=== PATIENT | female | born 1995 ===

== ENCOUNTER 2023-07-29 17:18 | Emergency (ER) | payer OTHER, SELFPAY ==
--- NOTE | ~2023-07-29 | XR_ITS ---
EXAMINATION: XR CHEST CLINICAL INFORMATION: Chest pain. COMPARISON: None available. TECHNIQUE: Frontal view of the chest was obtained. FINDINGS: No significant abnormality is noted involving the heart, lungs, mediastinum, bony thorax or soft tissues. XR/XR chest 1V IMPRESSION: Unremarkable examination.
--- NOTE | 2023-07-29 17:57 | ED.GENADULT ---
HPI - General Adult General Stated complaint: ear and throat pain Time Seen by Provider: 07/29/23 18:02 History of Present Illness HPI narrative: 28-year-old female with history of poor dental care prsents today for right lower molar pain that radiates to the right ear intermittently x 3 months. Reports she has not seen a dentist or PCP for a while. No fevers, changes in voice, drooling, or sore throat. No SOB. No dysphagia. Related Data Previous Rx's Medication Instructions Recorded amoxicillin 875 mg-potassium 1 tab PO BID 10 days #20 tabs 07/29/23 clavulanate 125 mg tablet naproxen 500 mg tablet 500 mg PO BID PRN pain 7 days #14 07/29/23 tabs Allergies Allergy/AdvReac Type Severity Reaction Status Date / Time No Known Allergies Allergy Verified 07/29/23 17:59 Review of Systems Review of Systems: Constitutional : No Fever, No Chills ENT/Mouth : No swallowing difficulty, no change in voice, positive dental pain, No jaw pain, No facial swelling Eyes: No Eye Pain, No Swelling Cardiovascular : No Chest Pain, No SOB Respiratory : No Cough, No Sputum Gastrointestinal : No Nausea, No Vomiting, No Diarrhea Genitourinary : No Dysuria Musculoskeletal : No Myalgias Skin : No rash Neuro : No Weakness, No Numbness, No Headache Physical Exam ED Vital Signs: VSS Appearance: Alert.? Oriented X3.? No acute distress.?Speaking in full sentences. Controlling secretions well. Head: Normocephalic, atraumatic, no step-offs or deformities Eyes: Pupils equal, round and reactive to light.? ENT: Pharynx normal.?Uvula midline, +Poor dentition throughout. +halitosis. +Fractured right lower back molar. No dental abscess.?External ears normal, TMs normal bilaterally and EAC's normal. No pain with manipulation of external ears bilaterally. No mastoid tenderness. Neck: Normal inspection.? Neck supple.? CVS: Normal heart rate and rhythm.? Pulses normal.? Respiratory: No respiratory distress.? Breath sounds normal.?No stridor. Skin: Skin warm and dry.? Normal skin color.? Normal skin turgor.? Extremities: No lower extremity edema.? No calf ttp. 5/5 strength to bilateral upper and lower extremities Neuro: Oriented X 3.? No motor deficit.? No sensory deficit. CN 2-12 intact Course Reevaluation(s) Reevaluation #1: Follow-up with dentist. Educated patient on diagnosis and treatment plan, answered all question, patient verbalizes understanding. At this time patient will be discharged home, advised to return with new or worsening symptoms. Educated on worrisome signs and symptoms and when to return. At this time I feel comfortable discharge home. Discharge Plan Discharge Patient Disposition: Still a Patient Additional Instructions: Prescriptions: New amoxicillin-pot clavulanate 875-125 mg tablet 1 tab PO BID 10 Days Qty: 20 0RF naproxen 500 mg tablet 500 mg PO BID PRN (Reason: pain) 7 Days Qty: 14 0RF Rx Instructions: Take with food Referrals: Physician,None [Primary Care Provider] - 1 day Stand Alone Forms: Work/School Release
[2023-07-29 18:34] VITALS: BP 160/95; PULSE 95; RESP 18; TEMP 36; O2SAT 99; BMI 43.0
--- NOTE | 2023-07-29 18:36 | ED.GENADULT ---
HPI - General Adult General Chief complaint: Upper Respiratory Symptoms Stated complaint: ear and throat pain Time Seen by Provider: 07/29/23 18:02 Source: patient Mode of arrival: ambulatory Limitations: no limitations History of Present Illness HPI narrative: Patient complaining of sore throat for last 2 weeks with bilateral earache right worse than left occasional dry cough low-grade fever and chills patient had strep test COVID flu RSV negative in the triage Related Data Previous Rx's Medication Instructions Recorded amoxicillin 875 mg-potassium 1 tab PO BID #20 tabs 07/30/23 clavulanate 125 mg tablet prednisone 20 mg tablet 40 mg (2 x 20 mg) PO DAILY #10 tabs 07/30/23 Allergies Allergy/AdvReac Type Severity Reaction Status Date / Time No Known Allergies Allergy Verified 07/29/23 18:33 Review of Systems Review of Systems: Yes all other systems are reviewed and are negative [facility] Social History Social History Smoked in Last 30 Days: No Use of substances other than those prescribed or required for medical reasons: No Advance Directives: No Advance Directives Information Provided: No Patient : No Physical Exam ED Vital Signs: Vital Signs - 24 hr 07/29/23 18:34 07/30/23 00:25 Temperature 96.8 F Pulse Rate 95 97 Respiratory Rate 18 18 Blood Pressure 160/95 H 145/80 H Pulse Oximetry 99 99 Oxygen Delivery Method Room Air BMI result Body Mass Index 43.0 Appearance: Alert. Oriented X3. No acute distress. ENT: Pharynx normal. Oral Mucosa moist postnasal drip+ inflamed nasal turbinate bilateral, tympanic membrane intake no erythema no effusion Neck: Normal inspection. Neck supple. CVS: Normal heart rate and rhythm. Pulses normal. Respiratory: No respiratory distress. Equal air entry bilateral, no wheezing/rales/rhonchi Extremities: No lower extremity edema. No calf tenderness Neuro: Oriented X 3. Course Course Course Narrative: This is an RME: Additional HPI, ROS, PE not included below will be deferred to primary provider. 28-year-old female presents with sore throat, b/l ear pain, cough with green sputum and intermittent blood-tinged sputum for the past 2 weeks. She reports mild chest discomfort when she coughs. She reports fevers last week that have since resolved. No shortness of breath. No n/v/d. No headaches or vision changes. Plan: Viral testing, strep testing, chest x-ray Medications Administered Discontinued Medications Generic Name Dose Route Start Last Admin Trade Name Natividad PRN Reason Stop Dose Admin Amoxicillin/Clavulanate Potassium 875 mg 07/29/23 23:57 07/30/23 00:12 Amoxicillin/Potassium Clav 875 Mg Tablet PO 07/29/23 23:58 875 mg ONCE ONE Administration Prednisone 60 mg 07/29/23 23:57 07/30/23 00:12 Prednisone 20 Mg Tablet PO 07/29/23 23:58 60 mg ONCE ONE Administration Medical Decision Making Medical Decision Making MDM Narrative: Patient likely with rhinosinusitis discharge patient on Augmentin and prednisone Lab Data [facility] Lab Attestation statement: I reviewed the patient's lab results. Labs: Lab Results 07/29/23 Range/Units 18:40 Influenza Type A (PCR) NEGATIVE (Negative) Influenza Type B (PCR) NEGATIVE (Negative) RSV RNA Qual (PCR) NEGATIVE (Negative) SARS-CoV-2 RNA (RT-PCR) NEGATIVE (Negative) S. pyogenes GrpA PROMISE Negative (Negative) Discharge Plan Discharge Clinical Impression: Acute rhinosinusitis Patient Disposition: Home, Self-Care Instructions: Rhinosinusitis (ED) Additional Instructions: Prescriptions: New prednisone 20 mg tablet 40 mg PO DAILY Qty: 10 0RF amoxicillin-pot clavulanate 875-125 mg tablet 1 tab PO BID Qty: 20 0RF Referrals: Physician,None [Primary Care Provider] - 1 day Stand Alone Forms: Work/School Release Interventions: ED Discharge Assessment Last Done: 07/30/23 00:28 Discharge Date/Time: 07/30/23 00:25
[2023-07-29 19:10] LABS: IDNOW Serial# 08D9AD1C; Strep A Nucleic Acid Negative (Negative)
[2023-07-29 19:32] LABS: Influenza A PCR NEGATIVE (Negative); Influenza B PCR NEGATIVE (Negative); Resp Syncy Virus RNA Qual PCR NEGATIVE (Negative); SARS COV2 PCR INHOUSE NEGATIVE (Negative)
[2023-07-30] MEDS: Amoxicillin/Potassium Clav 875 MG TABLET PO (00:12)
[2023-07-30] MEDS: predniSONE 20 MG TABLET 60 MG PO (00:12)
[2023-07-30 00:25] VITALS: BP 145/80; PULSE 97; RESP 18; O2SAT 99
== END 2023-07-30 00:25 | disposition home or self-care (01) ==
PROVIDERS: Physician Assistant; Emergency Provider Internal Medicine
DX: J01.90 Acute sinusitis, unspecified (principal); Z20.822 Contact with and (suspected) exposure to COVID-19; Z20.828 Contact with and (suspected) exposure to other viral communicable diseases; J02.9 Acute pharyngitis, unspecified; R05.9 Cough, unspecified
CPT/HCPCS: 0241U; 71045; 87651; 99283; 99284

== ENCOUNTER → 2024-05-18 09:44 | Outpatient (BNVA) | payer OTHER, SELFPAY | PROVIDERS: PCP Internal Medicine; Visit Provider Surgery ==

== ENCOUNTER 2024-06-07 08:00 | Outpatient (AMB) | payer OTHER, SELFPAY ==
[2024-06-07 11:47] VITALS: BMI 45.7
--- NOTE | 2024-06-07 11:47 | MHC.OFFVISWM ---
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: Yes Music Teacher Services: Music Teacher Present Information Interpreted: clinical only Allergies No Known Allergies Allergy (Verified 06/07/24 11:47) Medication List - Last Reconciled 06/07/24 by Andrea Laurent MD acetaminophen-caffeine 500-65 mg (Excedrin Tension Headache) 1 tab PO Q12H PRN HPI HPI 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*: Details: Start time: 11.40am, End time: 12.25pm ?I spent 40 minutes speaking with the patient on the phone plus an additional 5 minutes reviewing and updating records for a total of 45 minutes HPI Comments Details: Previous weight loss efforts: Exercise, [employer]bal[employer] Wakes up: 12pm, Sleeps: 3am Breakfast: skips Lunch: 1pm (sandwich, canned spaghetti, soup) Dinner: 6pm (rice and chicken) Snacks: 3pm (fruits or ice cream), after dinner (milk) Exercise: none Fluids: Coffee: none, tea: none, soda: Mountain Dew, juice: Cranberry juice, ETOH: none PFSH Medical History (Updated 06/07/24 @ 11:53 by Andrea Laurent MD) Anxiety Chronic headaches Morbid obesity Surgical History (Updated 05/18/24 @ 11:58 by Miladys Cummings CMA) Hx of cholecystectomy Family History (Updated 05/18/24 @ 10:06 by Miladys Cummings CMA) Paternal Grandmother Breast cancer Maternal Aunt Breast cancer Social History (Updated 05/18/24 @ 10:06 by Miladys Cummings CMA) Alcohol intake: never Patient Tobacco Use Status: Never used Tobacco Telehealth Telehealth Telehealth Platform: Telephone Location of provider rendering services: practice address Location of patient: address on file Patient Identification confirmed using: Name, : Yes Telehealth method: voice only Patient verbally consented to treatment: Yes Patient verbally consented to billing insurance company: Yes Patient informed of any privacy concerns related to visit: Yes Minutes spent on Phone/Video with Pt.: 45 Assessment & Plan Assessment & Plan (1) Morbid obesity: Code(s): E66.01 - Morbid (severe) obesity due to excess calories Category: Medical Plan: 1.? Plan for lap sleeve gastrectomy. If diaphragmatic or ventral hernias are present at time of surgery, these will be repaired laparoscopically as well. Risks and complications include possible conversion to an open procedure, anastomotic leak, bleeding requiring transfusion, small bowel obstruction, , DVT and pulmonary embolism, cardiac, or pulmonary complications, as mcc complications such as anastomotic ulcer, insufficient weight loss and vitamin deficiencies. I emphasized the importance of close follow-up, adherence to instructions and good communication. 2. Nutritional counseling. Start with 2 CELEBRATE REBUILD protein (buy at [facility] [employer] [address] [facility]) shakes (ONE scoop EACH in 8oz low fat unsweetened almond milk each) at 1pm-3pm and 4pm-6pm, dinner at 7pm (8 forks of protein and 8 forks of salad/vegetables) and 2 protein bars (CELEBRATE protein bars, buy at [facility] [address]) at 9pm-11pm and 12am-2am. So you do 2 protein shakes, 2 protein bars and one meal per day. Meal to include lean meat (beef, fish, pork, turkey, chicken), or belizean yogurt, or egg whites, or beans with a salad with olive oil and fruits (berries, pears, apples, kiwi). Avoid salt, breads, potatoes, rice, pasta, desserts. 3. Each shake would be drunk slowly, like coffee in a period of 2 hours. 4. Cut each bar in 4 pieces and eat each piece in 30min ?to make each bar last 2 hours. 5. I emphasized the importance of measuring accurately the food portion and measure it when serving the food in plate 6. The meal portions include 8 full-size forks of meat and 8 full-size forks of salad. You always eat the meat portion but you can replace up to 4 forks for salad/vegetables with rice, potatoes or pasta, or a fruit ?if you like. The less you do it the better weight loss will be. 7. One full-size fork is what it can be scooped on the fork without falling aside and not what can be bit with the fork. Use regular forks like those you find in a typical restaurant. 8.? Please send me weight measurements as soon as possible and then once a week. Always include your diet and exercise plan. 9. Start walking outside daily, tracking calories with a goal of 300 calories per day, daily. Goal is to burn 2000 calories per week on exercise, which means either 300 calories daily, or 400 calories 5 days per week, or 500 calories 4 days per week, or 650 calories 3 days per week. 10. The best choice would be to purchase a stationary bike, elliptical or treadmill at home that can track calories. Let me know if you do so I can give you an exercise plan. 11.?It is important of avoiding and for at least 18 months postoperatively and has been discussed at the infosession. 12. Goal is to lose at least 1.5-2lbs per week 13. Goal to lose 10% of your weight before surgery, which is about 24lbs. Ultimate weight goal: 214lbs before surgery 14. Please follow the diet plan exactly without any change. If you don't like something about the plan or you feel hungry you need to communicate with me so I can help you revise the plan. You should not change the plan yourself. 15. To be scheduled for EGD to assess the stomach's anatomy. The possibility of biopsies was discussed. Patient needs to avoid use of NSAIDs and aspirin for 1 week prior to EGD. Risks of perforation and bleeding was discussed with the patient. This will be an outpatient procedure with IV sedation. Orders: Orders Insulin Today E66.01 - Morbid (severe) obesity due to excess calories Hemoglobin A1c Today E66.01 - Morbid (severe) obesity due to excess calories Comprehensive Met. Panel Today E66.01 - Morbid (severe) obesity due to excess calories Vitamin B12 and Folate Today E66.01 - Morbid (severe) obesity due to excess calories Zinc Today E66.01 - Morbid (severe) obesity due to excess calories C Reactive Protein Today E66.01 - Morbid (severe) obesity due to excess calories Vitamin B1 Today E66.01 - Morbid (severe) obesity due to excess calories Vitamin A Today E66.01 - Morbid (severe) obesity due to excess calories TSH reflex Free T4 Today E66.01 - Morbid (severe) obesity due to excess calories Vitamin D 25-OH Total Today E66.01 - Morbid (severe) obesity due to excess calories XR chest 2V Today E66.01 - Morbid (severe) obesity due to excess calories FL upper GI w air Today E66.01 - Morbid (severe) obesity due to excess calories H Pylori Breath Test Today E66.01 - Morbid (severe) obesity due to excess calories Complete Blood Count Auto Diff Today E66.01 - Morbid (severe) obesity due to excess calories Lipid Panel Today E66.01 - Morbid (severe) obesity due to excess calories IRON PROFILE Today E66.01 - Morbid (severe) obesity due to excess calories Ferritin Today E66.01 - Morbid (severe) obesity due to excess calories US abdomen comp w elastography Today E66.01 - Morbid (severe) obesity due to excess calories ECG 12 lead EKG Today E66.01 - Morbid (severe) obesity due to excess calories Referrals Behavioral Health Referral E66.01 - Morbid (severe) obesity due to excess calories Nutrition/Dietitian Referral E66.01 - Morbid (severe) obesity due to excess calories
== END 2024-06-07 12:26 | disposition home or self-care (01) ==
LOC: HO.HBS 08:00
PROVIDERS: PCP Internal Medicine; Visit Provider Surgery
DX: E66.01 Morbid (severe) obesity due to excess calories (principal)
CPT/HCPCS: 99204

== ENCOUNTER → 2024-06-07 08:00 | Outpatient (BNVA) | payer OTHER, SELFPAY | PROVIDERS: PCP Internal Medicine; Visit Provider Surgery ==

== ENCOUNTER 2024-06-18 09:56 | Outpatient (REF) | payer OTHER, SELFPAY ==
--- NOTE | ~2024-06-18 | XR_ITS ---
EXAMINATION: XR CHEST 2 VIEWS CLINICAL INFORMATION: Morbid (severe) obesity due to excess calories E66.01. COMPARISON: XR Chest 07/29/2023 TECHNIQUE: 2 views of the chest were obtained. FINDINGS: The lungs are well expanded. There is no focal consolidation, edema, or effusion. No pneumothorax. The cardiomediastinal silhouette is within normal limits. No acute osseous abnormality. XR/XR chest 2V IMPRESSION: Clear lungs. Electronically signed by: Izaiah Gutierrez MD 08/11/2024 08:24 AM EST
--- NOTE | 2024-06-18 10:02 | ECG_ITS ---
Test Reason : obs Blood Pressure : / mmHG Vent. Rate : 078 BPM Atrial Rate : 078 BPM P-R Int : 130 ms QRS Dur : 074 ms QT Int : 368 ms P-R-T Axes : 030 011 023 degrees QTc Int : 419 ms Normal sinus rhythm Normal ECG No previous ECGs available Referred By: Andrea Laurent Electronically Signed By:CLIFF ADORNO
[2024-06-18 10:24] LABS: MANUAL DIFF FLAG NO
[2024-06-18 10:55] LABS: Basophils Absolute Auto 0.1 X10*3/uL (0.0-0.2); Basophils Percent Auto 0.7 % (0-2); Eosinophils Absolute Auto 0.1 X10*3/uL (0.0-0.4); Eosinophils Percent Auto 1.3 % (0-4); Hematocrit 41.8 % (37.0-47.0); Hemoglobin 13.9 g/dl (12.0-16.0); Imm Gran Abs Auto 0.02 X10*3/uL (0.00-0.03); Imm Gran Pct Auto 0.3 % (0.0-0.4); Lymphocytes Absolute Auto 2.8 X10*3/uL (1.2-4.9); Lymphocytes Percent Auto 40.7 % (20-40); Mean Corpuscular HGB Conc 33.3 g/dl (31.0-35.0); Mean Corpuscular Hemoglobin 28.5 pg (27.0-33.0); Mean Corpuscular Volume 85.8 fL (80.0-98.0); Mean Platelet Volume 8.7 fL (9.4-12.3); Monocytes Absolute Auto 0.4 X10*3/uL (0.1-1.2); Neutrophils Absolute Auto 3.5 x10*3/uL (2.0-8.3); Platelet Count 250 X10*3/uL (160-400); Red Blood Count 4.87 X10*6/uL (4.20-5.50); Red Cell Distribution Width 12.8 % (11.0-16.0); White Blood Count 6.8 X10*3/uL (4.8-10.8)
[2024-06-18 11:33] LABS: Alanine Aminotransferase 25 U/L (0-31); Albumin Level 4.3 g/dL (3.5-5.0); Alkaline Phosphatase 60 U/L (39-117); Anion Gap 14 (12-20); Aspartate Amino Transferase 19 U/L (5-31); Bilirubin Total 1.2 mg/dL (0.0-1.0); Blood Urea Nitrogen 9 mg/dL (9-16); C Reactive Protein 0.26 mg/dL (< or = 0.50); Calcium 9.1 mg/dL (8.4-10.2); Carbon Dioxide 27 mmol/L (22-29); Chloride 106 mmol/L (96-108); Cholesterol 139 mg/dL (<200); Estimated Glomerular Filt Rate > 60; Glucose Random 105 mg/dL (60-115); HDL Cholesterol 36 mg/dL (>40); Iron 98 mcg/dL (30-160); LDL Cholesterol Calculated 72 mg/dL (<100); Percent Iron Saturation 32 % (15-50); Potassium 3.8 mmol/L (3.3-5.1); Sodium 143 mmol/L (135-145); Total Iron Binding Capacity 304 mcg/dL (228-428); Total Protein 7.4 g/dL (6.5-8.0); Triglycerides 158 mg/dL (<150); Unsaturated Iron Binding 206 ug/dL
[2024-06-18 11:38] LABS: Ferritin 36 ng/mL (10-122); Insulin 18 uU/mL (2-29); TSH reflex Free T4 0.63 uIU/mL (0.32-4.0); Vitamin D 25-OH Total 16.2 ng/mL (>30)
[2024-06-18 12:01] LABS: Folate 12.9 ng/mL (> or = 4.0); Vitamin B12 238 pg/mL (200-900)
[2024-06-18 12:31] LABS: Estimated Average Glucose 108 mg/dL; Hemoglobin A1C 176.7133 umol/L; Hemoglobin A1c % 5.4 % (<6.0)
[2024-06-22 13:43] LABS: Zinc 74 mcg/dL (60-130)
[2024-06-24 16:15] LABS: Vitamin B1 8 nmol/L (8-30)
[2024-06-26 11:24] LABS: Vitamin A 46 mcg/dL (38-98)
== END 2024-06-18 09:57 | disposition home or self-care (01) ==
LOC: HO.XRAY 09:56
PROVIDERS: PCP Internal Medicine; Visit Provider Surgery
DX: E66.01 Morbid (severe) obesity due to excess calories (principal)
CPT/HCPCS: 36415; 71046; 80053; 80061; 82306; 82607; 82728; 82746; 83036; 83525; 83540; 84425; 84443; 84590; 84630; 85025; 86140; 93005

== ENCOUNTER → 2024-06-18 10:02 | Outpatient (BNV) | payer OTHER, SELFPAY | PROVIDERS: PCP Internal Medicine; Visit Provider Internal Medicine | DX: E66.01 Morbid (severe) obesity due to excess calories (principal) | CPT/HCPCS: 93010 ==

== ENCOUNTER 2024-06-21 08:33 | Outpatient (REF) | payer OTHER, SELFPAY ==
--- NOTE | ~2024-06-21 | US_ITS ---
EXAMINATION: US COMPLETE ABDOMEN WITH LIVER ELASTOGRAPHY CLINICAL INFORMATION: Morbid obesity. COMPARISON: None available. TECHNIQUE: Real-time imaging of the abdominal viscera. Noninvasive ultrasound liver fibrosis assessment is performed using [place] ElastPQ point quantification shear wave elastography (pSWE) with a C5-2 MHz transducer. Multiple elastography samples are obtained. FINDINGS: PANCREAS: The visualized pancreatic head and body are normal in appearance. The remainder of the pancreas is obscured from visualization by the overlying bowel gas. ABDOMINAL AORTA: The proximal, middle, and distal aortic segments are normal in caliber. INFERIOR VENA CAVA: Visualized portions are normal. LIVER: The liver is enlarged with increased echogenicity consistent with hepatic steatosis. No focal lesion or intrahepatic biliary duct dilatation. The right lobe measures 18.3 cm in length. The left lobe measures 11.5 cm in length. Portal flow is towards the liver (hepatopetal). Shear wave liver elastography median stiffness is 1.69 m/s (reference: normal median stiffness is 1.3 m/s or less). IQR/median stiffness to assess sampling precision is 0.07 (reference: good quality data set is IQR/median stiffness of 0.15 or less). GALLBLADDER: The gallbladder is physiologically distended without evidence of stones, sludge, polyps, wall thickening or pericholecystic fluid. COMMON BILE DUCT: Normal in caliber measuring 0.3 cm in diameter. RIGHT KIDNEY: No hydronephrosis. No renal calculi or focal parenchymal lesions. The kidney measures 10.6 cm in maximum dimension. LEFT KIDNEY: No hydronephrosis. No renal calculi or focal parenchymal lesions. The kidney measures 11.2 cm in maximum dimension. SPLEEN: Unremarkable. The spleen measures 11.5 cm in maximum dimension. FREE FLUID: None. US/US abdomen comp w elastography IMPRESSION: 1. Enlarged fatty liver. 2. Liver elastography: In the absence of other known clinical signs, measurements rule out compensated advanced chronic liver disease. If there are known clinical signs, further testing may be needed for confirmation. REFERENCE: Society of Radiologists in Ultrasound Liver Stiffness Thresholds (2020): LIVER STIFFNESS THRESHOLDS: *Liver Stiffness equal or less than 1.3 m/s: High probability of being normal. *Liver Stiffness less than 1.7 m/s: In the absence of other known clinical signs, rules out compensated advanced chronic liver disease. *Liver Stiffness 1.7-2.1 m/s: Suggestive of compensated advanced chronic liver disease but need further test for confirmation. *Liver Stiffness over 2.1 m/s: Rules in compensated advanced chronic liver disease. *Liver Stiffness over 2.4 m/s: Suggestive of clinically significant portal hypertension. QUALITY OF DATA SET: *IQR/Median value equal or less than 0.15 implies a quality data set. *IQR/Median value over 0.15 implies a poor quality data set. SIGNIFICANT CHANGE FROM PRIOR EXAM: Significant change if liver stiffness measurement is 10% or greater from prior exam. OTHER CONSIDERATIONS: The stage of liver fibrosis may be overestimated in the setting of acute hepatitis, liver inflammation, elevated liver function tests, hepatic vascular congestion, obstructive cholestasis, non-fasting state, and infiltrative diseases such as amyloidosis and lymphoma. In some patients with NAFLD, the liver stiffness thresholds for compensated advanced chronic liver disease may be lower. In causes other than viral hepatitis and NAFLD, liver stiffness thresholds are not well established. Electronically signed by: Reggie Schilling MD 08/14/2024 12:27 PM [facility]
== END 2024-06-21 08:34 | disposition home or self-care (01) ==
LOC: HO.US 08:33
PROVIDERS: PCP Internal Medicine; Visit Provider Surgery
DX: E66.01 Morbid (severe) obesity due to excess calories (principal)
CPT/HCPCS: 76700; 76981

== ENCOUNTER → 2024-06-24 12:56 | Outpatient (AMB) | payer OTHER, SELFPAY ==
--- NOTE | 2024-06-24 12:45 | MHC.WMTHER ---
Intake Intake Visit Reasons: (TV) BH Intake Allergies No Known Allergies Allergy (Verified 06/07/24 11:47) PFSH Medical History (Updated 06/21/24 @ 21:50 by Andrea Laurent MD) Anxiety Chronic headaches Morbid obesity Surgical History (Updated 05/18/24 @ 11:58 by Miladys Cummings CMA) Hx of cholecystectomy Family History (Updated 05/18/24 @ 10:06 by Miladys Cummings CMA) Paternal Grandmother Breast cancer Maternal Aunt Breast cancer Social History (Updated 05/18/24 @ 10:06 by Miladys Cummings CMA) Alcohol intake: never Patient Tobacco Use Status: Never used Tobacco Behavioral Health Assessment Weight Management Therapy Therapy Notes Details PT is a 88 years old female, who presents for a visit to complete BH assessment as part of surgical weight loss program. Presenting Concerns Referral Source WMP- provider. PT had initial visit with Dr Rodas on 06/07/2027. Reason for referral Completion of behavioral health assessment as part of process for weight-loss surgery. Precipitating Event Obesity. Living Situation Current Living Situation Rent At risk of losing current housing? No Satisfied with current living situation? Yes Comments Pt lives with her and their 2 children. Food/Weight/Diet Expectations of change Initial Goal to lose 10% of her weight before surgery, which is about 24lbs. Ultimate weight goal: 214lbs before surgery PT started the program on 06/07 at 238Lbs and her Most recent weight from today was 234Lbs. Patient wants to learn more about nutrition and adopt healthier life style in the longterm to have a successful weight loss and maintain at a healthy weight. PT is implementing the following: Current meal plan: 2 shakes, 2 bars and 1 meal Exercise plan: Daily walks, she does 5 to 7 days at week and she does 300 calories. History/Relationship with food Example of meals before starting the program: Breakfast: Lunch: Dinner: Snacks: Drinks/Liquids: History/Relationship with weight In the last 10 years, the patient's Lowest weight was and highest Social History Family history and relationship PT is almost 2 years ago. They have 2 children, her has an 8 year old daughter from previous relationship and they share a 1 year old son together. PT's mother lives in [place] but they're very close. She has 4 siblings from her mother and 7 siblings on her dad's side, however she doesn't have communication with these. She had a good childhood, but when she was 15 her closest sister which impacted her a lot. Parental/Familial magazine keeper obligations 8 year old lives with them, her custody is shared with her father and mom (client's ). 1 Year old daughter. Developmental history and status None reported Social support , sister, her mother. Community support None. Synagogue/Spirituality PT was raised as Latter-Day, she doesn't attend yazdanism but prays and is a believer. Cultural/Ethnic information PT is from [place], she was born and raised there. [place]oved to the in [place], but has been in [place] 5 years ago. Legal Involvement and History Current or historical involvement with the legal system? None reported. Education Highest grade completed HS. Preferred learning style Auditory, Learn by doing and Visual Currently enrolled in educational program? No Interested in further educational program? Yes Educational Interests/Skills Wants to do mechanics or electricity. 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 Employment Employment Status Unemployed Wants help to find employment? No Meaningful activities Family activities, crafts. Financial Situation Describe current financial situation Comfortable and Occasional struggle Financial assistance? Food [place] and Other (Rent assistance) Service Service? No Mental Health and Addiction Treatment Current/Past substance abuse? Yes (Cannabis use in the past.) Comments Alcohol: socially, couple times at year no more than 2 drinks. Cigarettes/Tobacco: None. Cannabis/Edibles: None Current/Past addictive behavior concerns? No Psychiatric history PT reports she has never been in counseling or any other MH treatment. Also never taken any MH medication. Denies ever been in crisis or hospitalized for mental health. There is no history and/or current concern about SI/SA and self-harm or other harm. Medical and Physical Health Summary Additional Medical History not covered in history None reported Sexual History concerns None reported Physical exam in the last year? Yes Pain Screening Current pain? No Pain in the last few months? Yes Comments Headaches Medications Is the patient compliant with medications? Yes Does the patient have Rosa Guardian in place? Not applicable Does the patient use complimentary health approaches? Yes Trauma/Abuse History History of trauma? No Questionnaires PHQ-9 Over the last 2 weeks, how often have you been bothered by any of the following problems? 1. Little interest or pleasure in doing things: not at all 2. Feeling down, depressed, or hopeless: not at all 3. Trouble falling or staying asleep, or sleeping too much: nearly every day 4. Feeling tired or having little energy: several days 5. Poor appetite or overeating: several days 6. Feeling bad about yourself - or that you are a failure or have let yourself or your family down: not at all 7. Trouble concentrating on things, such as reading the newspaper or watching television: several days 8. Moving or speaking so slowly that other people could have noticed. Or the opposite - being so fidgety or restless that you have been moving around a lot more than usual: not at all 9. Thoughts that you would be better off or of hurting yourself in some way: not at all Total score: 6 Depression Screening Interpretation: Negative Depression Screening Done: Yes Source: Developed by Drs. Bentley Denis, Shannon Muro, Keagan Lamar and colleagues, with an educational suraj from [employer]. Binge Eating Scale Group 1 A. I don't feel self-conscious about my wt. or body size when I'm with others. B. I feel concerned about how I look to others, but it normally does not make me fell disappointed with myself C. I do get self-conscious about my appearance and wt. which makes me feel disappointed in myself. D. I feel very self-conscious about my wt. and frequently I feel intense shame and disgust for myself. I try to avoid social contacts because of my self-consciousness. Response Group 1: B Group 2 A. I don't have any difficulty eating slowly in the proper manner. B. Although I seem to gobble down foods, I don't end up feeling stuffed because of eating to much. C. At times, I tend to eat quickly and then, I feel uncomfortably full afterwards. D. I have the habit of bolting down my food, without really chewing it. When this happens I usually feel uncomfortably stuffed because I've eaten to much. Response Group 2: A Group 3 A. I feel capable to control my eating urges when I want to. B. I feel like I have failed to control my eating more than the average person. C. I feel utterly helpless when it comes to feeling in control of my eating urges. D. Because I feel so helpless about controlling my eating I have become very desperate about trying to get control. Response Group 3: B Group 4 A. I don't have the habit of eating when I'm bored. B. I sometimes eat when I'm bored, but often I'm able to get busy and get my mind off food. C. I have a regular habit of eating when I'm bored, but occasionally, I can use some other activity to get my mind off eating. D. I have a strong habit of eating when I'm bored. Nothing seems to help me breath the habit. Response Group 4: C Group 5 A. I'm usually physically hungry when I eat something. B. Occasionally, I eat something on impulse even though I really am not hungry. C. I have the regular habit of eating foods, that I might not really enjoy, to satisfy a hungry feeling even though physically, I don't need the food. D. Although I'm not physically hungry, I get a hungry feeling in my mouth that only seems to be satisfied when I eat a food, like sandwich, that fills my mouth. Sometimes, when I eat the food to satisfy my mouth hunger, I then spit the food out so I won't gain weight. Response Group 5: B Group 6 A. I don't feel any guilt or self-hate after I overeat. B. After I overeat, occasionally I feel guilt or self-hate. C. Almost all the time I experience strong guilt or self-hate after I overeat. Response Group 6: B Group 7 A. I don't lose total control of my eating when dieting even after periods when I overeat. B. Sometimes when I eat a forbidden food on a diet, I feel like I blew it and eat even more. C. Frequently, I have the habit of saying to myself, I've blown it now, why not go all the way, when I overeat on a diet. When that happens I eat more. D. I have a regular habit of starting a strict diets for myself but I break the diets by going on an eating binge. My life seems to be either a feast or famine. Response Group 7: A Group 8 A. I rarely eat so much food that I feel uncomfortably stuffed afterwards. B. Usually about once a month, I each such a quantity of food, I end up feeling very stuffed. C. I have regular periods during the month when I eat large amounts of food, either at mealtime or at snacks. D. I eat so much food that I regularly feel quite uncomfortable after eating and sometimes a bit nauseous. Response Group 8: B Group 9 A. My level of calorie intake does not go up very high or go down very low on a regular basis. B. Sometimes after I overeat, I will try to reduce my caloric intake to almost nothing to compensate for the excess calories I've eaten. C. I have a regular habit of overeating during the night. It seems that my routine is not to be hungry in the morning but overeat in the evening. D. In my adult years, I have had week-long periods where I practically starve myself. This follows periods when I overeat. It seems I live a life of either feast or famine. Response Group 9: B Group 10 A. I usually am able to stop eating when I want to. I know when enough is enough. B. Every so often, I experience a compulsion to eat which I can't seem to control. C. Frequently, I experience strong urges to eat which I seem unable to control, but at other times I can control my eating urges. D. I feel incapable of controlling urges to eat. I have a fear of not being able to stop eating voluntarily. Response Group 10: C Group 11 A. I don't have any problem stopping eating when I feel full. B. I usually can stop eating when I feel full but occasionally overeat leaving me feeling uncomfortably stuffed. C. I have a problem stopping eating once I start and usually I feel uncomfortably stuffed after I eat a meal. D. Because I have a problem not being able to stop eating when I want, I sometimes have to induce vomiting to relieve my stuffed feeling. Response Group 11: A Group 12 A. I seem to eat just as much when I'm with others, Family social gatherings as when I'm by myself. B. Sometimes, when I'm with other persons, I don't eat as much as I want to eat because I'm self-conscious about my eating. C. Frequently, I eat only a small amount of food when others are present, because I'm very embarrassed about my eating. D. I feel so ashamed about overeating that I pick times to overeat when I know no one will see me. I feel like a closet eater. Response Group 12: C Group 13 A. I eat three meals a day with only an occasional between meal snack. B. I eat 3 meals a day, but I also normally snack between meals. C. When I am snacking heavily, I get in the habit of skipping regular meals. D. There are regular periods when I seem to be continually eating, with no planned meals. Response Group 13: D Group 14 A. I don't think much about trying to control unwanted eating urges. B. At least some of the time, I feel my thoughts are pre-occupied with trying to control my eating urges. C. I feel that frequently I spend much time thinking about how much I ate or about trying not to eat anymore. D. It seems to me that most of my waking hours are pre-occupied by thoughts about eating or not eating. I feel like I'm constantly struggling not to eat. Response Group 14: C Group 15 A. I don't think about food a great deal. B. I have strong craving for food but they last only for brief periods of time. C. I have days when I can't seem to think about anything else but food. D. Most of my days seem to be pre-occupied with thoughts about food. I feel like I live to eat. Response Group 15: B Group 16 A. I usually know whether or not I'm physically hungry. I take the right portion of food to satisfy me. B. Occasionally, I feel uncertain about knowing whether or not I'm physically hungry. A these times it's hard to know how much food I should take to satisfy me. C. Even though I might know how many calories I should eat, I don't have any idea what is a normal amount of food for me. Response Group 16: B Binge Eating Score: 19 Score less than 17 Minimal Risk Score between 18-26 Moderate Risk Score between 27-46 High Risk Assessment & Plan Assessment & Plan (1) Adjustment disorder, unspecified: Code(s): F43.20 - Adjustment disorder, unspecified (2) Eating problem: Code(s): Z72.4 - Inappropriate diet and eating habits Plan PT will be seen again in 3 weeks to continue assessment. PHQ-9 will be administered again and BES reviewed. NExt eloina 07/14/24 at 12, over the phone. Telehealth Telehealth [facility] Location of provider rendering services: other Location of patient: address on file Patient Identification confirmed using: Name, : Yes Telehealth method: voice only Patient verbally consented to treatment: Yes Patient verbally consented to billing insurance company: Yes Patient informed of any privacy concerns related to visit: Yes Minutes spent on Phone/Video with Pt.: 60 Coding Level of Care Code New Pt Tele Psy Diag Emilyal ([id number]) Patient Type New Diagnoses Adjustment disorder, unspecified F43.20 Eating problem Z72.4 Time Spent (min) 60 Comment start time: 12:45pm, End time: 1:45pm
== END ==
PROVIDERS: PCP Internal Medicine; Visit Provider Counselor Mental Health
DX: F43.20 Adjustment disorder, unspecified (principal); Z72.4 Inappropriate diet and eating habits
CPT/HCPCS: 90791

== ENCOUNTER → 2024-06-24 12:56 | Outpatient (BNVA) | payer OTHER, SELFPAY | PROVIDERS: PCP Internal Medicine; Visit Provider Counselor Mental Health ==

== ENCOUNTER 2024-07-06 09:05 | Day surgery (SDC) | payer OTHER, SELFPAY ==
--- NOTE | 2024-07-05 09:56 | P.CONAN_ITS ---
Documented by User: Aby Jones NP 07/05/24 09:56 HPI - Anesthesia Eval Consult details Narrative: 29yo F for Upper Endoscopy PMFSH Active Problems Active Problems: All Active Problems Vitamin B12 deficiency (Acute) Vitamin D deficiency (Acute) Anxiety (Acute) Chronic headaches (Acute) Morbid obesity (Acute) Past Medical History Medical History Anxiety Chronic headaches Morbid obesity Family History Family History Paternal Grandmother Breast cancer Maternal Aunt Breast cancer Surgical History Surgical History Hx of cholecystectomy Social History Social History Are you a primary healthcare facility administrator to a significant other at home: Yes Do you presently have visiting nurse or other home services: No Alcohol intake: never Patient Tobacco Use Status: Never used Tobacco Use of substances other than those prescribed or required for medical reasons: No Have you been hit, kicked, punched, or otherwise hurt by someone within the past year? If so, by whom?: No Are you DNR?: No Advance Directives: No Advance Directives Information Provided: No Advance Directives on File: No Recently lost weight without trying: No How much weight loss: Not applicable Eating poorly because of decreased appetite: No Nutrition screen score: 0 Nutrition Risks: No Nutritional Risk Patient : No : No Poor oral hygiene: No Meds Allergies Allergy/AdvReac Type Severity Reaction Status Date / Time No Known Allergies Allergy Verified 07/06/24 09:45 Home Medications ?Medication ?Instructions ?Recorded ?Confirmed ?Last Taken ?Type acetaminophen-caffeine 500 mg-65 1 tab PO Q12H PRN Headache 05/18/24 07/06/24 Unknown History mg tablet (Excedrin Tension Headache) Assessment and Plan Assessment Anesthesia Assessment: Chart Reviewed Documented by User: Malathi Underwood MD 07/06/24 12:01 COUNTS INCLUDE 234 BEDS AT THE [facility] Past Medical History Medical History Anxiety Chronic headaches Morbid obesity Family History Family History Paternal Grandmother Breast cancer Maternal Aunt Breast cancer Surgical History Surgical History Hx of cholecystectomy History of Problems with Anesthesia: No Social History Social History Are you a primary healthcare facility administrator to a significant other at home: Yes Do you presently have visiting nurse or other home services: No Alcohol intake: never Patient Tobacco Use Status: Never used Tobacco Use of substances other than those prescribed or required for medical reasons: No Have you been hit, kicked, punched, or otherwise hurt by someone within the past year? If so, by whom?: No Are you DNR?: No Advance Directives: No Advance Directives Information Provided: No Advance Directives on File: No Recently lost weight without trying: No How much weight loss: Not applicable Eating poorly because of decreased appetite: No Nutrition screen score: 0 Nutrition Risks: No Nutritional Risk Patient : No : No Poor oral hygiene: No Meds Allergies Allergy/AdvReac Type Severity Reaction Status Date / Time No Known Allergies Allergy Verified 07/06/24 09:45 Home Medications ?Medication ?Instructions ?Recorded ?Confirmed ?Last Taken ?Type acetaminophen-caffeine 500 mg-65 1 tab PO Q12H PRN Headache 05/18/24 07/06/24 Unknown History mg tablet (Excedrin Tension Headache) Exam Airway Mallampati Class: II TM Dist: >3cm Neck ROM: Full Loose/Missing/Broken Teeth: No Heart: RRR Lungs: CTA Assessment and Plan Assessment Anesthesia Assessment: Anesthesia Plan Discussed Final Anesthetic Review History of Problems with Anesthesia: No NPO: Yes ASA Class: III Final Preanesthetic Review: Meds/Allgs Chart Reviewed, Consent Obtained/Reviewed and Anes Risks/Benef Reviewed Patient Risk: Intermediate Procedure Risk: Intermediate Anesthetic Plan Anesthetic Plan: MAC: Disposition: Standard PACU
[2024-07-06 09:46] VITALS: BMI 43.5
[2024-07-06] MEDS: Lactated Ringers 1,000 ML 80 ML IVCONT (10:18)
[2024-07-06 10:28] LABS: UPreg QC Valid YES
[2024-07-06 10:29] LABS: Urine Pregnancy NEGATIVE (NEGATIVE)
--- NOTE | 2024-07-06 10:33 | MHC.SHP ---
Pre-Procedural Eval Section A - 24 Hr Update-Section A only Date of Service: 07/06/24 The patient is an INPATIENT: No The patient has been examined within 24 hours of the surgical procedure. The History & Physical has been completed within 30 days and I have reviewed it.: Yes Section B - Complete if H&P > 30 days Chief Complaint: Morbid (severe) obesity due to excess calories Relevant Family History (Specify if Yes): No Relevant Social History: None Present Medications: None Medical History: No relevant PMH History of Previous Operations: No relevant previous surgery Allergies: Allergies Allergy/AdvReac Type Severity Reaction Status Date / Time No Known Allergies Allergy Verified 07/06/24 09:45 Review of Systems Sugical H&P ROS: Negative: Constitution, Cardiovascular, Respiratory, Neurological, Psychiatric, Hem-Onc, Allergic/Immunologic, Gastrointestinal, Genitourinary, Musculoskeletal, Integumentary, Endocrine and Eyes/Ears/Nose/Throat Exam Surgical H&P Exam: Normal: HEENT, Normal: Heart, Normal: Lungs, Normal: Extremities, Normal: Abdomen, Normal: Skin and Normal: Neurological Plan Diagnosis/Plan: Unchanged (EGD to assess the stomach's anatomy. Risks of bleeding and perforation were discussed with the patient and she is in agreement with the plan.) I have reviewed the history and physical and performed a pertinent physical examination on my patient. No changes have occurred unless specified. Time Spent With Patient Time: Total time managing care of this patient today ____ minutes.
[2024-07-06 11:03] VITALS: BP 104/60; PULSE 105; RESP 18; TEMP 36.1; O2SAT 99
--- NOTE | 2024-07-06 11:09 | PM.OP ---
Brief Operative Note Date of Service: 07/06/24 Pre-op diagnosis: Morbid obesity Post-op diagnosis: same (1) small diaphragmatic hernia, 2) esophagitis) Procedure: PROCEDURE DATE: 07/06/2024 PREOPERATIVE DIAGNOSIS: Morbid obesity POSTOPERATIVE DIAGNOSIS: ?Same as above. 1) small hiatal hernia, 2) esophagitis PROCEDURE: [id number] with biopsies Surgeon: ?Slade Laurent M.D.. Ph.D. Superannuation Funds Manager: None ? Anesthesia: IV sedation Estimated blood loss: ?Minimal FINDINGS AND PROCEDURE: ? OPERATIVE INDICATIONS: ?The patient is a 29 year old female known to me who is interested in bariatric surgery. Based on this information I recommended an upper endoscopy to evaluate the stomach's anatomy. Risks and complications of the surgery were discussed with the patient in advance particularly the possibility of perforation or bleeding that may require surgical intervention. The patient understood the risks and was in agreement with the plan. ? PROCEDURE: After informed consent was obtained by the patient, the patient was ?transferred to the Operating Room and was placed in the supine position.? After successful induction of IV sedation, a mouth block was inserted and the patient was placed in the left lateral decubitus position. An upper endoscopy was performed next, the oropharynx and esophagus appeared within the normal limits. There was a small 2cm hiatal hernia. The z-line was irregular with tongues of gastric mucosa protruding into the esophagus to a 50% circumference. Two biopsies were obtained from the distal esophagus 2-3 cm proximal to the GE junction and two additional biopsies from the GE junction. The stomach was entered and it appeared to be of normal size. There was no gastritis. There was no stricture or ulcer. A biopsy was obtained from the gastric fundus and the antrum. No significant bleeding was noted from any of the biopsy sites. Retroflexion of the scope confirmed the presence of a smal dipahragmatic hernia. The scope was then advanced into the duodenum which appeared to be normal as well. At that point the duodenum ?and the stomach were decompressed and the scope was withdrawn from the patient's mouth. The patient extubated and was transferred in stable condition to the Recovery Room for further care. I was present and performed all steps of the procedure. There were no residents to assist with this case. Slade Laurent M.D., Ph.D. Surgeon: Andrea Laurent MD Was an Superannuation Funds Manager used for this Procedure?: No Estimated blood loss (mL): 0
[2024-07-06 11:18] VITALS: BP 125/77; PULSE 83; RESP 16; TEMP 36.1; O2SAT 98
== END 2024-07-06 12:38 | disposition home or self-care (01) ==
PROVIDERS: Nurse Practitioner; PCP Internal Medicine; Visit Provider Surgery
PROC: 0DJ08ZZ Inspection of Upper Intestinal Tract, Via Natural or Artificial Opening Endoscopic (ICD-10-PCS; CPT 43235; principal; 2024-07-06 10:50)
DX: E66.01 Morbid (severe) obesity due to excess calories (principal); Z68.42 Body mass index [BMI] 45.0-49.9, adult; K22.89 Other specified disease of esophagus; K44.9 Diaphragmatic hernia without obstruction or gangrene; K20.80 Other esophagitis without bleeding; R51.9 Headache, unspecified; F41.9 Anxiety disorder, unspecified; Z90.49 Acquired absence of other specified parts of digestive tract; Z79.899 Other long term (current) drug therapy
CPT/HCPCS: 43239; 81025; 88305; 88313; 88342; J2003; J2704

== ENCOUNTER → 2024-07-06 09:05 | Outpatient (BNV) | payer OTHER, SELFPAY | PROVIDERS: PCP Internal Medicine; Visit Provider Surgery | DX: K44.9 Diaphragmatic hernia without obstruction or gangrene (principal) | CPT/HCPCS: 43239 ==

== ENCOUNTER 2024-07-09 11:43 | Emergency (ER) | payer OTHER, SELFPAY ==
--- NOTE | ~2024-07-09 | XR_ITS ---
EXAMINATION: XR ANKLE, RIGHT CLINICAL INFORMATION: Pain COMPARISON: None available. TECHNIQUE: AP, lateral, and mortise views of the right ankle. FINDINGS: No acute cortical disruption or malalignment. No lytic or blastic lesions. XR/XR ankle RT 2V IMPRESSION: No acute fracture or dislocation. Electronically signed by: Brien Lord MD 07/09/2024 12:26 PM [facility]
--- NOTE | ~2024-07-09 | XR_ITS ---
EXAMINATION: XR FOOT, RIGHT CLINICAL INFORMATION: Pain COMPARISON: None available. TECHNIQUE: AP, lateral, and oblique views of the right foot. FINDINGS: No acute cortical disruption or malalignment. No lytic or blastic lesions. No subcutaneous emphysema. No joint effusion. XR/XR foot RT 2V IMPRESSION: No acute fracture or dislocation. Electronically signed by: Brien Lord MD 07/09/2024 12:25 PM EST
[2024-07-09 11:47] VITALS: BP 124/73; PULSE 103; RESP 18; TEMP 36.9; O2SAT 96; BMI 43.5
--- NOTE | 2024-07-09 11:48 | ED_ITS ---
HPI - General Adult General Chief complaint: Extremity Injury, Lower Stated complaint: R foot pain Time Seen by Provider: 07/09/24 11:51 Source: patient and interpreter deaf (mauritian) Mode of arrival: ambulatory Limitations: language barrier (mauritian speaking) History of Present Illness ED Provider: SUZE LIANG PA-C HPI narrative: 29 year old Mozambican speaking female with pmhx significant for morbid obesity and anxiety presents to the ED today for evaluation of atraumatic right foot pain x24 hours. Admits to new job where she is standing/ walking for long periods of time. She was at work yesterday when she began to have pain to the outer aspect of her right foot, only present when ambulating. As she is seated on the exam bed at present, she endorses 0/10 pain. Denies blunt injury or trauma. Reports EGD 4 days ago. She was told not to take any PO medication for 7 days following the procedure. She has not been taking anything at home for the pain. Denies pain to back of ankle. Denies calf pain. Denies numbness/tingling/weakness of the LE. seismic interpreter utilized throughout visit to communicate with patient. Related Data Home Medications ?Medication ?Instructions ?Recorded ?Confirmed acetaminophen-caffeine 500 mg-65 1 tab PO Q12H PRN Headache 05/18/24 07/06/24 mg tablet (Excedrin Tension Headache) Previous Rx's ?Medication ?Instructions ?Recorded cholecalciferol (vitamin D3) 125 125 mcg PO DAILY #90 caps 06/21/24 mcg (5,000 unit) capsule mecobalamin (vitamin B12) 1,000 1,000 mcg sublingual DAILY #90 tabs 06/21/24 mcg disintegrating tablet,sublingual diclofenac sodium 1 % topical gel 2 g topical QID PRN pain (scale 07/09/24 (Arthritis Pain (diclofenac)) score 4-6) #100 grams lidocaine 5 % topical patch 1 patch topical DAILY PRN pain 07/09/24 (Lidoderm) (scale score 4-6) #15 ea Allergies Allergy/AdvReac Type Severity Reaction Status Date / Time No Known Allergies Allergy Verified 07/09/24 11:49 Review of Systems Review of Systems: Constitutional: No fever, chills, fatigue, night sweats, weight changes ENT/Mouth: No ear pain, hearing loss, nasal congestion, sinus pain, rhinorrhea, sore throat Eyes: No eye pain, swelling, redness, vision changes, discharge Cardio: No chest pain, palpitations, FUNES, orthopnea, peripheral edema Pulm: No SOB, cough, sputum, wheezing, dyspnea, hemoptysis GI: No nausea, vomiting, hematemesis, abdominal pain, diarrhea, constipation, hematochezia, melena : No irregular bleeding, dysuria, frequency, urgency, hesitancy, hematuria, flank pain, urinary flow changes, urinary incontinence or retention MSK: No back pain, neck pain, joint pain, myalgias, +right foot pain Skin: No lesions, rashes Neuro: No weakness, numbness, paresthesias, LOC, dizziness, headache Psych: No anxiety/panic, depression, SI/HI, AH/VH All other systems reviewed and are negative. [facility] Past Medical History Attestation statement: The following information was validated with the patient. Source: old records reviewed and nursing notes reviewed Medical History Anxiety Chronic headaches Morbid obesity Surgical History Hx of cholecystectomy Family History Family History Paternal Grandmother Breast cancer Maternal Aunt Breast cancer Social History Social History Are you a primary resident care associate to a significant other at home: Yes Do you presently have visiting nurse or other home services: No Alcohol intake: never Patient Tobacco Use Status: Never used Tobacco Advance Directives: No Advance Directives Information Provided: Yes Do you have a plan to hurt others: No Plan Physical Exam ED Vital Signs: Vital Signs - 24 hr 07/09/24 11:47 Temperature 98.4 F Pulse Rate 103 H Respiratory Rate 18 Blood Pressure 124/73 Pulse Oximetry 96 Oxygen Delivery Method Room Air BMI result Body Mass Index 43.5 hypertensive, vitals otherwise wnl General: Well appearing, in no acute distress. Skin: Warm, dry, intact. No rashes or lesions. Head: Normocephalic, atraumatic. EENT: Hearing is intact b/l. Conjunctiva clear. PERRLA. EOM intact. Moist mucous membranes.? Neck: Supple without LAD Cardiac: Chest wall symmetric. RRR Lungs: Normal respiratory effort without accessory muscle use. CTA bilaterally. No rales, rhonchi, or wheezes.? Back: No midline spinous or paraspinal tenderness. No step off deformity. Ext: +no noted swelling, deformity or overlying skin changes to right foot/ankle. Slightly tender to palpation over lateral aspect of dorsum of right foot. No palpable deformity, crepitus. Full ROM intact to all toes and right ankle. No tenderness over Achilles tendon insertion, plantar fascia. No calf tenderness. 2+ PT/DP pulse intact. Ambulating with limping gait. Neuro: AOx3. Normal speech Psych: Appropriate mood and affect. Responds appropriately to questions. Course Course Course Narrative: This is an RME done by AYSE Lehman: Additional HPI, ROS, PE not included below will be deferred to primary provider. 29 yo f presents w/ 10/10 right foot pain after starting work where she walks alot. Using crutches. No trauma PE pain w/ weigh bearing NV intact Xrays ordered Reevaluation(s) Reevaluation #1: 1356 -- xr without acute fracture or dislocation. patient given IM toradol in ED. will send home with diclofenac cream and lido patches for pain control. placed in post-op shoe for comfort. Patient has remained stable throughout ED visit today. Discussed worrisome signs and symptoms and when to return to the ED. All questions answered at this time. Patient is agreeable with disposition and stable for discharge. Procedures Orthopedic Splinting/Casting Injury #1: Side: right Lower Extremity Injury Location: foot Lower Extremity Immobilizer: post-op shoe Medical Decision Making Medical Decision Making MDM Narrative: 29 year old [place]ambican speaking female with pmhx significant for morbid obesity and anxiety presents to the ED today for evaluation of atraumatic right foot pain x24 hours. VSS. She is nontoxic appearing and in NAD. On exam, there is no noted swelling, deformity or overlying skin changes to right foot/ankle. Slightly tender to palpation over lateral aspect of dorsum of right foot. No palpable deformity, crepitus. Full ROM intact to all toes and right ankle. No tenderness over Achilles tendon insertion, plantar fascia. No calf tenderness. 2+ PT/DP pulse intact. Ambulating with limping gait. Differential diagnosis includes contusion, msk sprain/ strain, fracture, dislocation Plan for xr, pain control, re-evaluation. Differential Diagnosis Differential Diagnoses: The differential diagnosis associated with the presentation includes as above. Admission/Observation Not indicated. Independent Interpretation I performed an independent interpretation of an: Plain X-Ray Interpretation: xr without fracture Radiology Impression Discussion of test interpretation with radiology: I have reviewed the radiologist's reading. Radiologist Impression: EXAMINATION: XR FOOT, RIGHT CLINICAL INFORMATION: Pain COMPARISON: None available. TECHNIQUE: AP, lateral, and oblique views of the right foot. FINDINGS: No acute cortical disruption or malalignment. No lytic or blastic lesions. No subcutaneous emphysema. No joint effusion. XR/XR foot RT 2V IMPRESSION: No acute fracture or dislocation. Electronically signed by: Brien Lord MD 07/09/2024 12:25 PM EST External Record Review External record reviewed: Inpatient record Prescription Management I considered prescription management with: Pain Medication Social Determinants Patient?s care significantly limited by Social Determinants of Health including: Other Social Determinant of Health Critical Care Time Critical Care Time Critical Care Time: No Discharge Plan Discharge Clinical Impression: Right foot sprain Patient Disposition: Home, Self-Care Instructions: R.I.C.E. Treatment (ED), Post Surgical Shoe (ED) Additional Instructions: You were evaluated in the ED today for your right foot pain. Your xrays are normal. You were provided with a dose of pain medication in ED. Since you are unable to take any oral medications due to your recent EGD, I have prescribed a pain control cream and lidocaine patches. You may alternate these for pain control. Do not apply them at the same time. You were also placed in a post-op shoe for comfort. Take it easy over the next few days. Ice and elevate the foot. Return with new or worsening symptoms. In the case of an emergency call 911. Prescriptions: New diclofenac sodium [Arthritis Pain (diclofenac)] 1 % gel 2 g topical QID PRN (Reason: pain (scale score 4-6)) Qty: 100 0RF Rx Instructions: apply to single elbow, wrist or hand; for hand includes palm/fingers/back of hand lidocaine [Lidoderm] 5 % adhesive patch,medicated 1 patch topical DAILY PRN (Reason: pain (scale score 4-6)) Qty: 15 0RF Rx Instructions: leave on most painful area for up to 12 hrs No Action cholecalciferol (vitamin D3) 125 mcg (5,000 unit) capsule 125 mcg PO DAILY Qty: 90 0RF mecobalamin (vitamin B12) 1,000 mcg tablet,disintegrating 1,000 mcg sublingual DAILY Qty: 90 0RF Rx Instructions: place tablet under tongue and allow to dissolve for at least30 secs before swallowing Excedrin Tension Headache 500-65 mg tablet 1 tab PO Q12H PRN (Reason: Headache) Stand Alone Forms: Work/School Release Print Language: Mozambican
[2024-07-09 14:05] VITALS: BP 97/54; PULSE 70; RESP 16; TEMP 37; O2SAT 99
[2024-07-09 14:16] VITALS: BP 102/58
[2024-07-09 14:29] VITALS: BP 102/58; PULSE 70; RESP 16; TEMP 37; O2SAT 99
== END 2024-07-09 14:29 | disposition home or self-care (01) ==
PROVIDERS: Emergency Provider Emergency Medicine
DX: S93.601A Unspecified sprain of right foot, initial encounter (principal); X50.1XXA Overexertion from prolonged static or awkward postures, initial encounter; E66.01 Morbid (severe) obesity due to excess calories; Z68.41 Body mass index [BMI] 40.0-44.9, adult; Y93.01 Activity, walking, marching and hiking; Y92.9 Unspecified place or not applicable; Y99.9 Unspecified external cause status; Z79.899 Other long term (current) drug therapy
CPT/HCPCS: 73600; 73620; 99283

== ENCOUNTER → 2024-07-09 11:47 | Outpatient (BNV) | payer OTHER, SELFPAY | PROVIDERS: Emergency Provider Emergency Medicine; Visit Provider Radiology Diagnostic Radiology | DX: M79.671 Pain in right foot (principal) | CPT/HCPCS: 73600; 73620 ==

== ENCOUNTER 2024-10-31 15:16 | Emergency (ER) | payer OTHER, SELFPAY ==
--- NOTE | ~2024-10-31 | CT_ITS ---
CLINICAL HISTORY: Right sided abdominal pain CT abdomen and pelvis without contrast Comparison: None Findings: The lung bases are clear. Unremarkable solid organs. There are no abnormal findings in the gallbladder fossa. No urolithiasis. No bowel obstruction, pneumoperitoneum, or pneumatosis. Pelvic contents unremarkable. Normal appendix. No acute fracture. IMPRESSION: No acute findings. This document has been electronically signed by: Brian Franz MD on 10/31/2024 18:38:52
[2024-10-31 15:23] VITALS: BP 152/73; PULSE 86; RESP 16; TEMP 36.2; O2SAT 99; BMI 42.1
--- NOTE | 2024-10-31 15:35 | ED_ITS ---
HPI - General Adult General Chief complaint: Abdominal Pain Stated complaint: r side abd pain Time Seen by Provider: 10/31/24 19:53 Source: patient Mode of arrival: ambulatory Limitations: no limitations History of Present Illness ED Provider: DR. Mejia HPI narrative: 29-year-old female no significant past medical history presented for evaluation of right-sided abdominal pain x2 weeks has gotten worse since yesterday, Localized to the right side of the abdomen, no radiation, no clear aggravating factor, no clear relieving factor, no nausea, no vomiting, no fever, no dysuria, no frequency urination, no bloody urine, last bowel movement was this morning and with normal, declined any blood in stool, no history or risk for STDs, no vaginal bleed or discharge. Cholecystectomy is only intra-abdominal surgery that the patient is reporting. Related Data Home Medications ?Medication ?Instructions ?Recorded ?Confirmed acetaminophen-caffeine 500 mg-65 1 tab PO Q12H PRN Headache 05/18/24 07/06/24 mg tablet (Excedrin Tension Headache) Previous Rx's ?Medication ?Instructions ?Recorded cholecalciferol (vitamin D3) 125 125 mcg PO DAILY #90 caps 06/21/24 mcg (5,000 unit) capsule mecobalamin (vitamin B12) 1,000 1,000 mcg sublingual DAILY #90 tabs 06/21/24 mcg disintegrating tablet,sublingual diclofenac sodium 1 % topical gel 2 g topical QID PRN pain (scale 07/09/24 (Arthritis Pain (diclofenac)) score 4-6) #100 grams lidocaine 5 % topical patch 1 patch topical DAILY PRN pain 07/09/24 (Lidoderm) (scale score 4-6) #15 ea cefuroxime axetil 250 mg tablet 250 mg PO BID 10 days #20 tabs 10/31/24 Allergies Allergy/AdvReac Type Severity Reaction Status Date / Time No Known Allergies Allergy Verified 10/31/24 15:28 Review of Systems 2 Review of Systems: all other systems are reviewed and are negative Constitutional: Reports as per HPI and Reports no additional constitutional complaints Eyes: Reports as per HPI and Reports no additional eye complaints Reports system reviewed and no additional complaints, except as documented Cardiovascular: Reports as per HPI and Reports no additional cardiovascular complaints Respiratory: Reports as per HPI and Reports no additional respiratory complaints Gastrointestinal: Reports as per HPI and Reports no additional gastrointestinal complaints Genitourinary: Reports no additional female genitourinary complaints Musculoskeletal: Reports no additional musculoskeletal complaints Skin/Breast: Reports system reviewed and no additional complaints, except as docu Psychiatric: Reports no additional psychiatric complaints Endocrine: Reports no additional endocrine complaints Hematologic/Lymphatic: Reports no additional hematologic/lymphatic complaints Allergic/Immunologic: Reports no additional allergic/immunologic complaints Reports system reviewed and no additional complaints, except as documented and Reports Abnormal speech present COUNT INCLUDES THE [facility] Past Medical History Medical History Anxiety Chronic headaches Morbid obesity Surgical History Hx of cholecystectomy Family History Family History Paternal Grandmother Breast cancer Maternal Aunt Breast cancer Social History Social History Are you a primary residential caregiver to a significant other at home: Yes Do you presently have visiting nurse or other home services: No Alcohol intake: never Patient Tobacco Use Status: Never used Tobacco Physical Exam ED Vital Signs: Vital Signs - 24 hr 10/31/24 15:23 Temperature 97.2 F Pulse Rate 86 Respiratory Rate 16 Blood Pressure 152/73 H Pulse Oximetry 99 Oxygen Delivery Method Room Air BMI result Body Mass Index 42.1 Vital signs have been reviewed and appear to be correct. Blood pressure elevated. Heart rate normal. Respiratory rate normal. Temperature normal. Oxygen saturation normal. Appearance: Alert. Oriented X3. No acute distress. Head: Normal external exam. Normocephalic. Atraumatic. No Dickerson signs noted. No raccoon eyes noted Eyes: PERRLA. EOMI. Conjunctiva and sclera normal. Eyelids normal. ENT: TM's Normal. Pharynx normal. Uvula midline. Moist mucous membranes. No trismus noted. No drooling noted. No muffled voice noted. Neck: Normal inspection. Neck supple. FROM. No adenopathy. Thyroid Normal. No meningeal signs. No neck mass noted. CVS: Normal heart rate and rhythm. Heart sound normal. No murmurs noted. Pulses normal throughout. Respiratory: No respiratory distress. Painless inspiration. Breath sounds normal. No wheezes/rales/rhonchi noted. Chest nontender. No accessory muscle usage noted or decreased air movement noted. Abdomen: Soft and nontender. Bowel sounds normal in all 4 quadrants. No distention noted. No organomegaly noted. No visible injury noted. Back: R CVA tenderness. Full range of motion noted. Skin: Skin warm and dry. Normal skin color. Normal skin turgor. No rashes/lesions/lacerations noted. Extremities: No lower extremity edema. Extremities exhibit normal range of motion. Extremities nontender. Neuro: Oriented X 3. Cranial nerve exam: II-XII are grossly intact No motor deficit. No sensory deficit. Reflexes normal. Course Course Course Narrative: RME: 30 29-year-old female presents to ED for right-sided abdominal pain without any urinary symptoms. Patient states right side right lower quadrant abdominal pain. Patient denies any chest pain shortness of breath. Labs UA ordered. Reevaluation(s) Reevaluation #1: simple UTI without complication. Start on Ceftin, drink plenty of fluid, follow-up with PCP as needed. Time: 20:05 Medications Administered Discontinued Medications Generic Name Dose Route Start Last Admin Trade Name Freq PRN Reason Stop Dose Admin Cefuroxime Axetil 500 mg 10/31/24 19:59 10/31/24 20:16 Cefuroxime Axetil 500 Mg Tablet PO 10/31/24 20:00 500 mg ONCE ONE Administration Ibuprofen 200 mg 10/31/24 19:59 10/31/24 20:15 Ibuprofen 200 Mg Tablet PO 10/31/24 20:00 200 mg ONCE ONE Administration Medical Decision Making Differential Diagnosis Differential Diagnoses: The differential diagnosis associated with the presentation includes ( Acute appendicitis, pancreatitis, pyelonephritis, ureteric stone, colitis, diverticulitis, electrolyte derangement, severe anemia, UTI, .) Admission/Observation Consideration of admission/observation: Escalation of care including admission/observation considered Lab Data MDM Lab Attestation statement: I reviewed the patient's lab results. 10/31/24 16:09 10/31/24 16:09 Labs: Lab Results 10/31/24 Range/Units 16:09 WBC 7.7 (4.8-10.8) X10*3/uL RBC 4.60 (4.20-5.50) X10*6/uL Hgb 13.2 (12.0-16.0) g/dl Hct 38.6 (37.0-47.0) % MCV 83.9 (80.0-98.0) fL MCH 28.7 (27.0-33.0) pg MCHC 34.2 (31.0-35.0) g/dl RDW 13.1 (11.0-16.0) % Plt Count 242 (160-400) X10*3/uL MPV 8.5 L (9.4-12.3) fL Immature Gran % (Auto) 0.3 (0.0-0.4) % Neut % (Auto) 55.2 (45-73) % Lymph % (Auto) 36.8 (20-40) % [place] % (Auto) 5.9 (2-11) % Eos % (Auto) 1.4 (0-4) % Baso % (Auto) 0.4 (0-2) % Lymph # (Auto) 2.9 (1.2-4.9) X10*3/uL [place] # (Auto) 0.5 (0.1-1.2) X10*3/uL Eos # (Auto) 0.1 (0.0-0.4) X10*3/uL Baso # (Auto) 0.0 (0.0-0.2) X10*3/uL Abs Immat Gran (auto) 0.02 (0.00-0.03) X10*3/uL Absolute Neuts (auto) 4.3 (2.0-8.3) x10*3/uL Absolute Nucleated RBC 0.000 (0.0-0.012) X10*3/uL Nucleated RBC % (auto) 0.0 (0.0-0.2) /100WBC PT 11.6 (10.9-12.4) SEC INR 1.0 (0.9-1.1) APTT 29.7 (26.0-36.8) SEC Sodium 143 (135-145) mmol/L Potassium 3.8 (3.3-5.1) mmol/L Chloride 108 (96-108) mmol/L Carbon Dioxide 26 (22-29) mmol/L Anion Gap 13 (12-20) BUN 8 L (9-16) mg/dL Creatinine 0.71 (0.5-1.4) mg/dL Estim Creat Clear Calc 131.2 Estimated GFR > 60 Random Glucose 96 (60-115) mg/dL Calcium 9.4 (8.4-10.2) mg/dL Total Bilirubin 0.7 (0.0-1.0) mg/dL AST 18 (5-31) U/L ALT 17 (0-31) U/L Alkaline Phosphatase 65 (39-117) U/L Total Protein 7.7 (6.5-8.0) g/dL Albumin 4.1 (3.5-5.0) g/dL Lipase 14 (8-78) U/L Beta HCG, Quant < 2 mIU/mL Urine Color Yellow Urine Appearance Cloudy Urine pH 5.5 (5.0-9.0) Ur Specific [place] 1.025 (1.005-1.025) Urine Protein Trace (Neg-Trace) mg/dL Urine Glucose (UA) Negative (Negative) mg/dL Urine Ketones Trace (Negative) mg/dL Urine Blood Negative (Negative) Urine Nitrite Negative (Negative) Ur Leukocyte Esterase Large (3+) H (Negative) Urine RBC 0-2 (0-2) /HPF Urine WBC 21-50 H (0-5) /HPF Ur Squamous Epith Cells 11-20 (0-2) /HPF Urine Bacteria Trace (None Seen) Hyaline Casts 0-2 (0-2) /LPF Independent Interpretation I performed an independent interpretation of an: CT Scan ( Abdomen and pelvis: No acute findings) Radiology Impression Discussion of test interpretation with radiology: I have reviewed the radiologist's reading. Discharge Plan Discharge Clinical Impression: UTI (urinary tract infection) Patient Disposition: Home, Self-Care Instructions: Urinary Tract Infection in Women (ED) Prescriptions: New cefuroxime axetil 250 mg tablet 250 mg PO BID 10 Days Qty: 20 0RF No Action cholecalciferol (vitamin D3) 125 mcg (5,000 unit) capsule 125 mcg PO DAILY Qty: 90 0RF mecobalamin (vitamin B12) 1,000 mcg tablet,disintegrating 1,000 mcg sublingual DAILY Qty: 90 0RF Rx Instructions: place tablet under tongue and allow to dissolve for at least30 secs before swallowing diclofenac sodium [Arthritis Pain (diclofenac)] 1 % gel 2 g topical QID PRN (Reason: pain (scale score 4-6)) Qty: 100 0RF Rx Instructions: apply to single elbow, wrist or hand; for hand includes palm/fingers/back of hand lidocaine [Lidoderm] 5 % adhesive patch,medicated 1 patch topical DAILY PRN (Reason: pain (scale score 4-6)) Qty: 15 0RF Rx Instructions: leave on most painful area for up to 12 hrs Excedrin Tension Headache 500-65 mg tablet 1 tab PO Q12H PRN (Reason: Headache) Interventions: ED Discharge Assessment Last Done: 10/31/24 20:19 Discharge Date/Time: 10/31/24 20:20 Print Language: Georgian
[2024-10-31 16:14] LABS: MANUAL DIFF FLAG NO
[2024-10-31 16:32] LABS: Basophils Percent Auto 0.4 % (0-2); Eosinophils Absolute Auto 0.1 X10*3/uL (0.0-0.4); Eosinophils Percent Auto 1.4 % (0-4); Hematocrit 38.6 % (37.0-47.0); Hemoglobin 13.2 g/dl (12.0-16.0); Imm Gran Abs Auto 0.02 X10*3/uL (0.00-0.03); Imm Gran Pct Auto 0.3 % (0.0-0.4); Lymphocytes Absolute Auto 2.9 X10*3/uL (1.2-4.9); Lymphocytes Percent Auto 36.8 % (20-40); Mean Corpuscular HGB Conc 34.2 g/dl (31.0-35.0); Mean Corpuscular Hemoglobin 28.7 pg (27.0-33.0); Mean Corpuscular Volume 83.9 fL (80.0-98.0); Mean Platelet Volume 8.5 fL (9.4-12.3); Monocytes Absolute Auto 0.5 X10*3/uL (0.1-1.2); Monocytes Percent Auto 5.9 % (2-11); Neutrophils Absolute Auto 4.3 x10*3/uL (2.0-8.3); Neutrophils Percent Auto 55.2 % (45-73); Platelet Count 242 X10*3/uL (160-400); Red Cell Distribution Width 13.1 % (11.0-16.0); White Blood Count 7.7 X10*3/uL (4.8-10.8)
[2024-10-31 16:34] LABS: Appearance Urine Cloudy; Color Urine Yellow; Glucose Urine UA Negative (Negative); Leukocyte Esterase Urine Large (3+) (Negative); Nitrite Urine Negative (Negative); PH 5.5 (5.0-9.0); Specific Gravity - Urine 1.025 (1.005-1.025); UMIC TRIGGER UACC YES; Urine Blood Negative (Negative); Urine Ketones Trace mg/dL (Negative); Urine Protein Trace mg/dL (Neg-Trace)
[2024-10-31 16:36] LABS: Prothrombin Time 11.6 SEC (10.9-12.4)
[2024-10-31 16:39] LABS: Bacteria Urine Trace (None Seen); Hyaline Casts Urine 0-2 /LPF (0-2); Partial Thromboplastin Time 29.7 SEC (26.0-36.8); RBC Urine 0-2 /HPF (0-2); UACC Culture Trigger YES; WBC Urine 21-50 /HPF (0-5)
[2024-10-31 16:50] LABS: Alanine Aminotransferase 17 U/L (0-31); Albumin Level 4.1 g/dL (3.5-5.0); Alkaline Phosphatase 65 U/L (39-117); Anion Gap 13 (12-20); Aspartate Amino Transferase 18 U/L (5-31); Bilirubin Total 0.7 mg/dL (0.0-1.0); Blood Urea Nitrogen 8 mg/dL (9-16); Calcium 9.4 mg/dL (8.4-10.2); Carbon Dioxide 26 mmol/L (22-29); Chloride 108 mmol/L (96-108); Creatinine Clr Calc Pharmacy 131.2; Estimated Glomerular Filt Rate > 60; Glucose Random 96 mg/dL (60-115); Lipase 14 U/L (8-78); Potassium 3.8 mmol/L (3.3-5.1); Sodium 143 mmol/L (135-145); Total Protein 7.7 g/dL (6.5-8.0)
[2024-10-31 16:54] LABS: HCG Quantitative < 2 mIU/mL
[2024-10-31 20:13] VITALS: BP 138/86; PULSE 81; RESP 14; TEMP 36.8; O2SAT 97
[2024-10-31] MEDS: Ibuprofen 200 MG TABLET PO (20:15)
[2024-10-31] MEDS: cefuroxime axetiL 500 MG TABLET PO (20:16)
[2024-10-31 20:19] VITALS: BP 138/86; PULSE 81; RESP 14; TEMP 36.8; O2SAT 97
== END 2024-10-31 20:20 | disposition home or self-care (01) ==
PROVIDERS: Physician Assistant; Emergency Provider Emergency Medicine
DX: N39.0 Urinary tract infection, site not specified (principal); R10.31 Right lower quadrant pain; Z79.899 Other long term (current) drug therapy
CPT/HCPCS: 36415; 74176; 80053; 81001; 83690; 84702; 85025; 85610; 85730; 87086; 99284

== ENCOUNTER → 2024-10-31 17:34 | Outpatient (BNV) | payer OTHER, SELFPAY | PROVIDERS: Visit Provider Specialist | DX: R10.9 Unspecified abdominal pain (principal) | CPT/HCPCS: 74176 ==

== ENCOUNTER → 2024-12-27 11:16 | Outpatient (AMB) | payer OTHER, SELFPAY ==
--- NOTE | 2024-12-27 11:14 | A.OFFWM_ITS ---
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 She initially engaged in June 2024 but discontinued participation due to financial and personal challenges. She now returns to complete the evaluation and receive support in preparation for surgery. The patient denies any history of mental health treatment, psychiatric hospitalization, or behavioral health crises. She also denies any current or past suicidal ideation (SI), suicide attempts (SA), self-harm, or harm to others. No history of substance use is reported. There is no indication of emotional or stress-related eating, and scores on the Binge Eating Scale (BES) suggest low risk for disordered eating. PHQ-9 results indicate no current depressive symptoms. Mental status exam is within normal limits, with no evidence of functional impairment. From a behavioral health perspective, the patient is deemed appropriate and cleared to proceed with the weight-loss surgery process. Presenting Concerns Referral Source P- provider. PT had initial visit with Dr Rodas on 06/07/2027. Reason for referral Completion of behavioral health assessment as part of process for weight-loss surgery. Precipitating Event Obesity. Living Situation Current Living Situation Rent At risk of losing current housing? No Satisfied with current living situation? Yes Comments Pt lives with her and their 2 children. Food/Weight/Diet Expectations of change Initial Goal to lose 10% of her weight before surgery, which is about 24lbs. Ultimate weight goal: 214 lbs before surgery PT started the program on 06/07 at 238 lbs. Most recent weight as of 12/24: 219 lbs. 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 PT is implementing the following: Current meal plan: 2 shakes, 2 bars, and 1 meal Exercise plan: Daily walks, she does 5 to 7 days a week, and she does 300 calories. Also has a fitness room at work that she will start using. History/Relationship with food frequently eat large amounts of food in short periods of time at times overeat and feel out of control when eating fast foods. Before starting the program, she had no appetite in the morning and felt very hungry in the evening, often overeating between dinner and when going to bed. In the past, she didn't have a set meal schedule, and at times would skip meals. Example of meals before starting the program: Breakfast: Skips Lunch: 1 pm (sandwich, canned spaghetti, soup, fast food) Dinner: 6 pm (rice, beans, and chicken or fast food.) Snacks: multiple throughout the day. Gummies, chocolate, fruits, cookies, ice cream or milk. Drinks/Liquids: 5-6 cans of Soda, a couple of glasses of juice. little water. History/Relationship with weight PT reports she was always chubby since childhood. In the last 10 years, the patient's Lowest weight was 120 lbs. and the highest 242 lbs. 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 Diet with/ exercise. Binge Eating Do you frequently eat large amounts of food in short periods of time, not feeling physically hungry? Yes Do you feel out of control when you eat a large amount of food in a short period of time? No Do you eat large amounts of food rapidly and typically alone? No Night Eating Do you wake up at least once during the night to eat? No If you wake up in the night, do you find that it is necessary to eat something in order to fall back asleep? No Do you have little or no appetite in the morning and feel very hungry in the evening, often overeating between dinner and when you go to bed? Yes Social History Family history and relationship PT is 2 years ago, but they been together since 2020. They have 2 children, her has an 8 year old daughter from previous relationship and they share a 2 year old son together. PT's mother lives in [place] but they're very close. She has 4 siblings from her mother and 7 siblings on her dad's side, however, she doesn't have communication with these. She had a good childhood, but when she was 15, her closest sister , which impacted her a lot. 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 2 Year old son . Developmental history and status None reported Social support , sister, her mother. Community support None. Islam/Spirituality PT was raised as Mu-Ism, she doesn't attend moravian but prays and is a believer. Cultural/Ethnic information PT is from [place], she was born and raised there. [place]oved [place], but has been in [place] 6 years ago. Legal Involvement and History Current or historical involvement with the legal system? None reported. Education Highest grade completed HS. Preferred learning style Auditory, Learn by doing and Visual Currently enrolled in educational program? No Interested in further educational program? Yes Educational Interests/Skills Wants to do mechanics or electricity. 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 ) Wants help to find employment? No Meaningful activities Family activities, crafts. Financial Situation Describe current financial situation Occasional struggle Financial assistance? Food [place] Service Service? No Mental Health and Addiction Treatment Current/Past substance abuse? Yes (Cannabis use in the past.) Comments Alcohol: socially, couple times at year no more than 2 drinks. Cigarettes/Tobacco: None. Cannabis/Edibles: None Current/Past addictive behavior concerns? No Psychiatric history PT reports she has never been in counseling or any other MH treatment. Also never taken any MH medication. Denies ever been in crisis or hospitalized for mental health. There is no history and/or current concern about SI/SA and self-harm or other harm. Medical and Physical Health Summary Additional Medical History not covered in history None reported Sexual History concerns None reported Physical exam in the last year? Yes Pain Screening Current pain? No Pain in the last few months? Yes Comments Headaches Medications Is the patient compliant with medications? Yes Does the patient have Rosa Guardian in place? Not applicable Does the patient use complimentary health approaches? Yes Trauma/Abuse History History of trauma? No Questionnaires PHQ-9 Over the last 2 weeks, how often have you been bothered by any of the following problems? 1. Little interest or pleasure in doing things: not at all 2. Feeling down, depressed, or hopeless: not at all 3. Trouble falling or staying asleep, or sleeping too much: not at all 4. Feeling tired or having little energy: several days 5. Poor appetite or overeating: not at all 6. Feeling bad about yourself - or that you are a failure or have let yourself or your family down: not at all 7. Trouble concentrating on things, such as reading the newspaper or watching television: not at all 8. Moving or speaking so slowly that other people could have noticed. Or the opposite - being so fidgety or restless that you have been moving around a lot more than usual: not at all 9. Thoughts that you would be better off or of hurting yourself in some way: not at all Total score: 1 Depression Screening Interpretation: Negative Depression Screening Done: Yes 80517 - PHQ-9 Billing: Yes Source: Developed by Drs. Bentley Denis, Shannon Muro, Keagan Lamar and colleagues, with an educational suraj from [employer]. Binge Eating Scale Group 1 A. I don't feel self-conscious about my wt. or body size when I'm with others. B. I feel concerned about how I look to others, but it normally does not make me fell disappointed with myself C. I do get self-conscious about my appearance and wt. which makes me feel disappointed in myself. D. I feel very self-conscious about my wt. and frequently I feel intense shame and disgust for myself. I try to avoid social contacts because of my self- consciousness. Response Group 1: B Group 2 A. I don't have any difficulty eating slowly in the proper manner. B. Although I seem to gobble down foods, I don't end up feeling stuffed because of eating to much. C. At times, I tend to eat quickly and then, I feel uncomfortably full afterwards. D. I have the habit of bolting down my food, without really chewing it. When this happens I usually feel uncomfortably stuffed because I've eaten to much. Response Group 2: A Group 3 A. I feel capable to control my eating urges when I want to. B. I feel like I have failed to control my eating more than the average person. C. I feel utterly helpless when it comes to feeling in control of my eating urges. D. Because I feel so helpless about controlling my eating I have become very desperate about trying to get control. Response Group 3: B Group 4 A. I don't have the habit of eating when I'm bored. B. I sometimes eat when I'm bored, but often I'm able to get busy and get my mind off food. C. I have a regular habit of eating when I'm bored, but occasionally, I can use some other activity to get my mind off eating. D. I have a strong habit of eating when I'm bored. Nothing seems to help me breath the habit. Response Group 4: C Group 5 A. I'm usually physically hungry when I eat something. B. Occasionally, I eat something on impulse even though I really am not hungry. C. I have the regular habit of eating foods, that I might not really enjoy, to satisfy a hungry feeling even though physically, I don't need the food. D. Although I'm not physically hungry, I get a hungry feeling in my mouth that only seems to be satisfied when I eat a food, like sandwich, that fills my mouth. Sometimes, when I eat the food to satisfy my mouth hunger, I then spit the food out so I won't gain weight. Response Group 5: B Group 6 A. I don't feel any guilt or self-hate after I overeat. B. After I overeat, occasionally I feel guilt or self-hate. C. Almost all the time I experience strong guilt or self-hate after I overeat. Response Group 6: B Group 7 A. I don't lose total control of my eating when dieting even after periods when I overeat. B. Sometimes when I eat a forbidden food on a diet, I feel like I blew it and eat even more. C. Frequently, I have the habit of saying to myself, I've blown it now, why not go all the way, when I overeat on a diet. When that happens I eat more. D. I have a regular habit of starting a strict diets for myself but I break the diets by going on an eating binge. My life seems to be either a feast or famine. Response Group 7: A Group 8 A. I rarely eat so much food that I feel uncomfortably stuffed afterwards. B. Usually about once a month, I each such a quantity of food, I end up feeling very stuffed. C. I have regular periods during the month when I eat large amounts of food, either at mealtime or at snacks. D. I eat so much food that I regularly feel quite uncomfortable after eating and sometimes a bit nauseous. Response Group 8: B Group 9 A. My level of calorie intake does not go up very high or go down very low on a regular basis. B. Sometimes after I overeat, I will try to reduce my caloric intake to almost nothing to compensate for the excess calories I've eaten. C. I have a regular habit of overeating during the night. It seems that my routine is not to be hungry in the morning but overeat in the evening. D. In my adult years, I have had week-long periods where I practically starve myself. This follows periods when I overeat. It seems I live a life of either feast or famine. Response Group 9: B Group 10 A. I usually am able to stop eating when I want to. I know when enough is enough. B. Every so often, I experience a compulsion to eat which I can't seem to control. C. Frequently, I experience strong urges to eat which I seem unable to control, but at other times I can control my eating urges. D. I feel incapable of controlling urges to eat. I have a fear of not being able to stop eating voluntarily. Response Group 10: C Group 11 A. I don't have any problem stopping eating when I feel full. B. I usually can stop eating when I feel full but occasionally overeat leaving me feeling uncomfortably stuffed. C. I have a problem stopping eating once I start and usually I feel uncomfortably stuffed after I eat a meal. D. Because I have a problem not being able to stop eating when I want, I sometimes have to induce vomiting to relieve my stuffed feeling. Response Group 11: A Group 12 A. I seem to eat just as much when I'm with others, Family social gatherings as when I'm by myself. B. Sometimes, when I'm with other persons, I don't eat as much as I want to eat because I'm self-conscious about my eating. C. Frequently, I eat only a small amount of food when others are present, because I'm very embarrassed about my eating. D. I feel so ashamed about overeating that I pick times to overeat when I know no one will see me. I feel like a closet eater. Response Group 12: C Group 13 A. I eat three meals a day with only an occasional between meal snack. B. I eat 3 meals a day, but I also normally snack between meals. C. When I am snacking heavily, I get in the habit of skipping regular meals. D. There are regular periods when I seem to be continually eating, with no planned meals. Response Group 13: D Group 14 A. I don't think much about trying to control unwanted eating urges. B. At least some of the time, I feel my thoughts are pre-occupied with trying to control my eating urges. C. I feel that frequently I spend much time thinking about how much I ate or about trying not to eat anymore. D. It seems to me that most of my waking hours are pre-occupied by thoughts about eating or not eating. I feel like I'm constantly struggling not to eat. Response Group 14: C Group 15 A. I don't think about food a great deal. B. I have strong craving for food but they last only for brief periods of time. C. I have days when I can't seem to think about anything else but food. D. Most of my days seem to be pre-occupied with thoughts about food. I feel like I live to eat. Response Group 15: B Group 16 A. I usually know whether or not I'm physically hungry. I take the right portion of food to satisfy me. B. Occasionally, I feel uncertain about knowing whether or not I'm physically hungry. A these times it's hard to know how much food I should take to satisfy me. C. Even though I might know how many calories I should eat, I don't have any idea what is a normal amount of food for me. Response Group 16: B Binge Eating Score: 19 Score less than 17 Minimal Risk Score between 18-26 Moderate Risk Score between 27-46 High Risk Assessment & Plan Assessment & Plan (1) Adjustment disorder, unspecified: Code(s): F43.20 - Adjustment disorder, unspecified (2) Pre-bariatric surgery psychological evaluation: Code(s): Z71.89 - Other specified counseling Plan From a behavioral health perspective, the patient is deemed appropriate and is cleared to proceed with the weight-loss surgery process. She is expected to return for follow-up behavioral health screening and support within 1?3 weeks postoperatively. Telehealth Telehealth [facility] Location of provider rendering services: other Location of patient: address on file Patient Identification confirmed using: Name, : Yes Telehealth method: voice only Patient verbally consented to treatment: Yes Patient verbally consented to billing insurance company: Yes Patient informed of any privacy concerns related to visit: Yes Minutes spent on Phone/Video with Pt.: 60 Coding Level of Care Code New Pt Tele Psy Diag Eval (77416) Patient Type New Diagnoses Adjustment disorder, unspecified F43.20 Pre-bariatric surgery psychological evaluation Z71.89 Additional Codes PHQ-9 - 80130 - PHQ-9 Billing: Yes ([id number]) Time Spent (min) 60
--- OUTSIDE RECORDS SUMMARY | 2024-12-27 13:32 | XMS_ITS | Clinical Summary ---
Author Organization [address] [place] [address] Address [address] [place] [address] Phone Care Team Providers Care Fire Chief Deputy Name Role Phone Joey Angelo MD Primary Care Provider [phone] Allergies No known active allergies Medications ergocalciferol (VITAMIN D-2) 1,250 mcg (50,000 unit) capsule Take 1 capsule (50,000 Units total) by mouth 1 (one) time per week. 08/20/2023 Active Active Problems Problem Noted Date Diagnosed Date Morbid obesity with BMI of 4 0.0-44.9, adult (CMS/[facility] V24, [facility] V28) 08/11/2024 Vitamin D deficiency 08/20/2023 Encounters Date Type Department Care Team Description 11/05/2024 9:00 AM EST Office Visit Internal Medicine - [place] [address] [facility] [address] [place] [address] Yamileth Hewitt PA Urinary tract infection with hematuria, site unspecified (Primary Dx) from Last 3 Months Surgical History Surgery Date Site/Laterality Comments CHOLECYSTECTOMY PROCEDURE: LAPAROSCOPY, CHOLECYSTECTOMY; COMMENT: due to cholelithiasis -2018 Medical History Medical History Date Comments Morbid obesity with BMI of 4 0.0-44.9, adult (CMS/HCC V24, CMS/[facility] V28) DX:Morbid obesity wit h BMI of 40.0-44.9, adult ([facility]) Vitamin D deficiency DX:Vitamin D deficiency Family History Relation Name Status Comments Father Alive Mother Alive Social History Tobacco Use Types Packs/Day Years Used Date Smoking Tobacco: Never Smokeless Tobacco: Never Alcohol Use Standard Drinks/Week Comments Yes 0 (1 standard drink = 0.6 oz pur e alcohol) Housing Instability Answer Date Recorde d Are you worried that in the next 2 months you may not have stable housing? No 11/04/2024 Food Access & Nutrition Answer Date Rec orded Do you have access to a vari ety of food including fruits and vegetables? Yes 11/04/2024 Access to Healthcare Answer Date Record ed Within the last 3 months, ho w many times did you visit the emergency department for your medical care? 1 11/04/2024 Health Literacy Answer Date Recorded How often do you need to hav e someone help you when you read instructions, pamphlets, or other written material from your doctor or pharmacy? Never 11/04/2024 Caregiver: How often do you need to have someone help you when you read instructions, pamphlets, or other written material from your doctor or pharmacy? Not on file 11/04/2024 Financial Risk Answer Date Recorded How hard is it for you to pa y for the very basics like food, housing, medical care, and air conditioning / heating? Somewhat hard 11/04/2024 Transportation Answer Date Recorded Has the lack of transportati on kept you from meetings, work, or from getting things needed for daily living? No Has the lack of transportati on kept you from medical appointments or from getting medications? No 11/04/2024 Social Isolation Answer Date Recorded How often do you feel lonely or isolated from th ose around you? Never 11/04/2024 Food Risk Answer Date Recorded Within the past 12 months we worried whether our food would run out before we got money to buy more. Sometimes true 025 Within the past 12 months th e food we bought just didn't last and we didn't have money to get more. Never true 11/04/2024 Dependent Care Answer Date Recorded Do you need help finding or paying for care for your loved ones. For example, early childhood education specialist or elderly care for an older adult? No 11/04/2024 Education Answer Date Recorded Do you think completing more education or training, like finishing a GED, going to college, or learning a trade, would be helpful for you? N/A 11/04/2024 Employment and Income Answer Date Recor ded During the last four weeks, have you been actively looking for work? Yes 11/04/2024 Living Situation Answer Date Recorded What is your living situation? 0 11/04/2024 Comments Unknown Sex and Gender Information Value Date Recorded Sex Assigned at Female 10/13/2024 10:23 AM EST Legal Sex Female 9:08 PM EST Gender Identity Female 10/13/2024 10:23 AM EST Sexual Orientation Lesbian or [place] 10/13/2024 10 :23 AM EST Obstetrics History Last Filed Vital Signs Vital Sign Reading Time Taken Comments Blood Pressure 128/88 11/05/2024 8:50 AM EST Pulse 79 11/05/2024 8:50 AM EST Temperature 36.3 ??C (97.3 ??F) 11/05/2024 8:50 AM ES T Respiratory Rate - - Oxygen Saturation 99% 11/05/2024 8:50 AM EST Inhaled Oxygen Concentration - - Weight 104 kg (228 lb 6.4 oz) 11/05/2024 8:50 AM EST Height 154.9 cm (5' 1 ) 11/05/2024 8:50 AM EST Body Mass Index 43.16 11/05/2024 8:50 AM EST Plan of Treatment Health Maintenance Due Date Last Done Comments DTaP,Tdap,and Td Vaccines (1 - Tdap) 2013 Hepatitis B Vaccines (1 of 3 - 19+ 3-dose series) 2013 Cervical Cancer Screening: P ap Smear 2015 HIV Screening 09/26/2023 Hepatitis C Screening 09/26/2023 COVID-19 Vaccine (1 - 2023-2 5 season) 2024 Influenza Vaccine (Season Ended) 2025 Depression Screening 11/04/2025 11/04/2024 Social Influencers of Health Screening 11/04/2025 11/04/2024 Cholesterol Screening (Lipid Panel) 08/19/2028 08/19/2023 HIB Vaccines Aged Out No longer eligi ble based on patient's age to complete this topic HPV Vaccines Aged Out No longer eligi ble based on patient's age to complete this topic Hepatitis A Vaccines Aged Out No long er eligible based on patient's age to complete this topic IPV Vaccines Aged Out No longer eligi ble based on patient's age to complete this topic MMR Vaccines Aged Out No longer eligi ble based on patient's age to complete this topic Meningococcal ACWY Vaccine Aged Out N o longer eligible based on patient's age to complete this topic Meningococcal B Vaccine Aged Out No l onger eligible based on patient's age to complete this topic Pneumococcal Vaccine: Pediat rics (0 to 5 Years) and At-Risk Patients (6 to 64 Years) Aged Out No longer eligi ble based on patient's age to complete this topic RSV Immunization Patients Un maximino 20 months Aged Out No longer eligible b ased on patient's age to complete this topic Varicella Vaccines Aged Out No longer eligible based on patient's age to complete this topic Procedures Procedure Name Priority Date/Time Associated Diagnosis Comments LIPID PANEL Routine 08/19/2023 from Last 3 Months or Most Recently Relevant to Health Maintenance Results * Lipid panel (08/19/2023) LDL/HDL Ratio 3 0 - 4 Triglycerides 108 0 - 150 mg/dL Cholesterol 158 0 - 200 mg/dL HDL 46 >=40 mg/dL LDL Cholesterol 91 0 - 100 mg/dL Blood Venous blood specimen / Unknown Historical Provider LAB BLOOD ORDERABLES Leelee l Result from Last 3 Months or Most Recently Relevant to Health Maintenance Insurance [facility] Care Teams Fire Chief Deputy Relationship Specialty Start Date End Date Joey Angelo MD [address] [facility] [address] [place] [address] PCP - General 07/14/23
== END ==
PROVIDERS: Visit Provider Counselor Mental Health
DX: F43.20 Adjustment disorder, unspecified (principal); Z71.89 Other specified counseling
CPT/HCPCS: 90791

== ENCOUNTER → 2024-12-27 11:16 | Outpatient (BNVA) | payer OTHER, SELFPAY | PROVIDERS: Visit Provider Counselor Mental Health ==

== ENCOUNTER 2025-01-03 08:21 | Outpatient (REF) | payer OTHER, SELFPAY ==
--- NOTE | ~2025-01-03 | FL_ITS ---
EXAMINATION: XR FLUOROSCOPY UPPER GI WITH AIR CLINICAL INFORMATION: Morbid to severe obesity due to excess calories COMPARISON: None available. TECHNIQUE: Routine upper GI air contrast study was performed in upright and lying position. FINDINGS: Following oral administration of thick barium in upright view there is normal propagation bolus from the oral cavity through the pharynx, esophagus into stomach without any evidence of obstruction, narrowing or stricture. No laryngeal penetration or aspiration seen. No retention of barium in the valleculae or piriform sinuses. On placing patient in supine and prone lying the course, caliber and peristalsis of the stomach, duodenal bulb and sweep is normal. There is moderate gastroesophageal reflux into the upper mid esophagus without hiatal hernia. The mucosal pattern of the esophagus, stomach and duodenal bulb is normal. Incidental finding of cholecystectomy cindy are noted in the right upper quadrant. FLUOROSCOPY TIME: 1 minute 24 seconds DOSE AREA PRODUCT: 1448 uGy-m2 (microgray-meter squared) FL/FL upper GI w air IMPRESSION: Moderate gastroesophageal reflux and mid to upper esophagus. No evidence of hernia. Electronically signed by: Yobani Carroll MD 01/03/2025 11:52 AM EDT
--- OUTSIDE RECORDS SUMMARY | 2025-01-03 08:37 | XMS_ITS | Clinical Summary ---
Author Organization [address] [place] [address] Address [address] [place] [address] Phone Care Team Providers Care Helicopter Repairer Name Role Phone Joey Angelo MD Primary Care Provider [phone] Allergies No known active allergies Medications ergocalciferol (VITAMIN D-2) 1,250 mcg (50,000 unit) capsule Take 1 capsule (50,000 Units total) by mouth 1 (one) time per week. 08/20/2023 Active Active Problems Problem Noted Date Diagnosed Date Morbid obesity with BMI of 4 0.0-44.9, adult (CMS/[facility] V24, [facility] V28) 08/11/2024 Vitamin D deficiency 08/20/2023 Encounters Date Type Department Care Team Description 11/05/2024 9:00 AM EST Office Visit Internal Medicine - [place] [address] [facility] [address] [place] [address] Yamileth Hewitt PA Urinary tract infection with hematuria, site unspecified (Primary Dx) from Last 3 Months Surgical History Surgery Date Site/Laterality Comments CHOLECYSTECTOMY PROCEDURE: LAPAROSCOPY, CHOLECYSTECTOMY; COMMENT: due to cholelithiasis -2018 Medical History Medical History Date Comments Morbid obesity with BMI of 4 0.0-44.9, adult (CMS/HCC V24, CMS/[facility] V28) DX:Morbid obesity wit h BMI of 40.0-44.9, adult ([facility]) Vitamin D deficiency DX:Vitamin D deficiency Family [...] care for your loved ones. For example, teacher early childhood development or elderly care for an older adult? [...] Most Recently Relevant to Health Maintenance Insurance [facility] Care Teams Helicopter Repairer Relationship Specialty Start Date End Date Joey Angelo MD 175 [facility] [address] [place] [address] PCP - General 07/14/23
== END 2025-01-03 08:22 | disposition home or self-care (01) ==
LOC: HO.XRAY 08:21
PROVIDERS: PCP Internal Medicine; Visit Provider Surgery
DX: E66.01 Morbid (severe) obesity due to excess calories (principal)
CPT/HCPCS: 74246

== ENCOUNTER → 2025-01-03 08:22 | Outpatient (BNV) | payer OTHER, SELFPAY | PROVIDERS: PCP Internal Medicine; Visit Provider Radiology Diagnostic Radiology | DX: E66.9 Obesity, unspecified (principal) | CPT/HCPCS: 74246 ==

== ENCOUNTER 2025-01-21 08:31 | Outpatient (AMB) | payer OTHER, SELFPAY ==
--- OUTSIDE RECORDS SUMMARY | 2025-01-21 08:41 | XMS_ITS | Clinical Summary ---
Author Organization [address] [place] [address] Address [address] [place] [address] Phone Care Team Providers Care Programmer Business Name Role Phone Joey Angelo MD Primary Care Provider [phone] Allergies No known active allergies Medications ergocalciferol (VITAMIN D-2) 1,250 mcg (50,000 unit) capsule Take 1 capsule (50,000 Units total) by mouth 1 (one) time per week. 08/20/2023 Active Active Problems Problem Noted Date Diagnosed Date Morbid obesity with BMI of 4 0.0-44.9, adult (CMS/[facility] V24, [facility] V28) 08/11/2024 Vitamin D deficiency 08/20/2023 Encounters Date Type Department Care Team Description 11/05/2024 9:00 AM EST Office Visit Internal Medicine - [place] 175 [facility] [address] [place] [address] Yamileth eHwitt PA Urinary tract infection with hematuria, site unspecified (Primary Dx) from Last 3 Months Surgical History Surgery Date Site/Laterality Comments CHOLECYSTECTOMY PROCEDURE: LAPAROSCOPY, CHOLECYSTECTOMY; COMMENT: due to cholelithiasis -2018 Medical History Medical History Date Comments Morbid obesity with BMI of 4 0.0-44.9, adult (CMS/HCC V24, CMS/[facility] V28) DX:Morbid obesity wit h BMI of 40.0-44.9, adult ([facility]) Vitamin D deficiency DX:Vitamin D deficiency Family [...] care for your loved ones. For example, child nurse or elderly care for an older adult? [...] Most Recently Relevant to Health Maintenance Insurance [facility] [employer] Care Teams Programmer Business Relationship Specialty Start Date End Date Joey Angelo MD 175 [facility] [address] [place] [address] PCP - General 07/14/23
[2025-01-21 11:34] VITALS: BMI 38.3
--- NOTE | 2025-01-21 11:34 | A.OFFVIS_ITS ---
VS Expanded 01/21/25 11:34 Height 5 ft 2 in Weight 209 lb 6 oz BMI 38.3 Body Fat % 50.4 Body Fat Mass 105.6 Fat Free Mass 104 Visceral Fat Rating 21 Body Water % 34 Body Water Mass 71.2 Basal Metabolic Rate/Score 1,395 Intake Visit Reasons: TV Pre Op LSG 02/03/25 *SYSTEM DEVELOPMENT MANAGER* Seed Production Field Supervisor Required: Yes Seed Production Field Supervisor Services: Seed Production Field Supervisor Present Information Interpreted: clinical only Allergies No Known Allergies Allergy (Verified 01/21/25 11:43) Medication List - Last Reconciled 01/21/25 by Andrea Laurent MD acetaminophen-caffeine 500-65 mg (Excedrin Tension Headache) 1 tab PO Q12H PRN cholecalciferol (vitamin D3) 125 mcg PO DAILY diclofenac sodium 1% (Arthritis Pain (diclofenac)) 2 grams topical QID PRN lidocaine 5% (Lidoderm) 1 patch topical DAILY PRN mecobalamin (vitamin B12) 1,000 mcg sublingual DAILY ondansetron 4 mg PO Q12H pantoprazole 40 mg PO DAILY polyethylene glycol 3350 17 grams PO DAILY sucralfate 10 mL PO BID HPI HPI TV Pre Op LSG 02/03/25 *SYSTEM DEVELOPMENT MANAGER*: Details: Start time: 11.34am, End time: 11.54am ?I spent 25 minutes speaking with the patient on the phone plus an additional 5 minutes reviewing and updating records for a total of 30 minutes HPI Comments Details: Overall weight loss: 28.4lbs, or 11.93% TBWL Is doing 2 Garden of Life protein shakes (1/2 scoop in almond milk), 2 Atkins protein bars and one meal (7 forks of protein and 7 forks of salad or vegetables) Exercise: walking outside [facility] Medical History (Updated 01/21/25 @ 11:40 by Andrea Laurent MD) Obesity Anxiety Chronic headaches Morbid obesity Surgical History Hx of cholecystectomy Family History Paternal Grandmother Breast cancer Maternal Aunt Breast cancer Social History Are you a primary primary care sales representative to a significant other at home: Yes Do you presently have visiting nurse or other home services: No Alcohol intake: never Patient Tobacco Use Status: Never used Tobacco Telehealth Telehealth Telehealth Platform: Telephone Location of provider rendering services: practice address Location of patient: address on file Patient Identification confirmed using: Name, : Yes Telehealth method: voice only Patient verbally consented to treatment: Yes Patient verbally consented to billing insurance company: Yes Patient informed of any privacy concerns related to visit: Yes Minutes spent on Phone/Video with Pt.: 30 Assessment & Plan Assessment & Plan (1) Obesity: Code(s): E66.9 - Obesity, unspecified Category: Medical Qualifiers: Obesity type: due to excess calories Obesity classification: adult class 2 (BMI 35 - 39.9) Serious obesity comorbidity presence: without serious comorbidity Body mass index: BMI 39.0-39.9 Qualified Code(s): E66.812 - Obesity, class 2; E66.09 - Other obesity due to excess calories; Z68.39 - Body mass index [BMI] 39.0-39.9, adult Plan: 1. Plan for lap sleeve gastrectomy including upper GI endoscopy. All tests has been completed and reviewed and the patient is cleared for the surgery. ?If diaphragmatic or ventral hernias are present at time of surgery, these will be repaired laparoscopically as well. Risks and complications were discussed in detail including possible conversion to an open procedure, anastomotic leak, bleeding requiring transfusion, small bowel obstruction, , DVT and pulmonary embolism, cardiac, or pulmonary complications, as oil heaterman complications such as anastomotic ulcer, insufficient weight loss and vitamin deficiencies. I emphasized the importance of close follow-up, adherence to in structions and good communication. So far she has proven to be an excellent communicator and very compliant with all our directions accomplishing a great weight loss. I believe that she is an excellent candidate and she is ready. 2. Preop prescriptions were provided and explained the purpose of each one. Need to be purchased preop. Start Pantoprazole now as you get it from the pharmacy, 1 pill per day. Sucralfate and Zofran are for after surgery as needed. 3. Bowel prep: please do 7 packets ?of Miralax mixing each one with a an 8oz glass of water, crystal light, gatorade zero, or propel ?on 02/01/25 and the same amount on 02/02/25. The Miralax you begin with one packet at a time in 8oz water or crystal light, gatorade zero, or propel ?as early in the day as you can and you do them back to back until you finish them. Continue the protein shakes during ?the bowel prep. 4. Needs to purchase 1oz medicine cups . 5. Needs to purchase Children's liquid Tylenol for postop pain control. 6. Avoid aspirin, motrin, Advil, Aleve, Meloxicam, Excedrin, Ibuprofen, Naproxyn. Tylenol is OK. 7. She needs to purchase the Celebrate multivitamins from the hospital's gift shop, chewable or pills whatever you prefer. 8. Will do basic preop blood work-up on Friday01/26/25 fasting for 12 hours and is scheduled to see the Anesthesiologist prior to the day of surgery. 9. Importance of adherence to postop folllow-up and recommendations was underscored and she understands that. 10. Stop food and bars as of Friday01/25/25 and continue with 4 Garden of Life protein shakes (HALF scoop EACH in 8oz almond milk) at 11am-1pm, 2pm-4pm, 5pm- 7pm and 8pm-10pm, and one more Garden of Life protein shake with ONE scoop in 8oz of almond milk at 11pm to 1am. 11. No soups, broths or V8 12. The patient's?medical?history has been reviewed and they are considered low risk for post op DVT and therefore DVT prophylaxis is not considered necessary. Travel after surgery was reviewed. The patient has not disclosed any travel plans during the first 30 days after surgery and they have been advised that within the first 30 days after surgery any bus, plane, train or car travel over 2 hours in duration is contraindicated due to the possibility of developing blood clots from immobility. Any travel, needs to include periods of ambulation of 10 minutes in duration every 2 hours.? Patient was instructed to discuss any plans for travel during this period with their bariatric surgeon.? 13. Please take at the day of surgery the following medications: NONE 14. Stop any control pills and don't use them for one month after surgery 15. Absolutely no smoking or vaping, or marijuana until the surgery and for at least the first 4 weeks. Only nicotine patches are allowed. 16. Send me weight measurements on Friday01/22/25 and on 01/29/25 and then on 02/03/25, the day of surgery before you go to the hospital. 17. Avoid any steroids by mouth for any reason. Let me know if someone prescribes them to you 18. These instructions supersede anything else you read in the handbook, anything you watched in videos or classes or you were told by any other provider. If there is any conflict, you follow the above instructions and nothing else. Orders: Orders Comprehensive Met. Panel Today E66.9 - Obesity, unspecified, Z68.39 - Body mass index [BMI] 39.0-39.9, adult TSH reflex Free T4 Today E66.9 - Obesity, unspecified, Z68.39 - Body mass index [BMI] 39.0-39.9, adult Prothrombin Time INR Today E66.9 - Obesity, unspecified, Z68.39 - Body mass index [BMI] 39.0-39.9, adult Type and Screen Today E66.9 - Obesity, unspecified, Z68.39 - Body mass index [BMI] 39.0-39.9, adult C Reactive Protein Today E66.9 - Obesity, unspecified, Z68.39 - Body mass index [BMI] 39.0-39.9, adult Complete Blood Count Auto Diff Today E66.9 - Obesity, unspecified, Z68.39 - Body mass index [BMI] 39.0-39.9, adult Partial Thromboplastin Time Today E66.9 - Obesity, unspecified, Z68.39 - Body mass index [BMI] 39.0-39.9, adult Lipid Panel Today E66.9 - Obesity, unspecified, Z68.39 - Body mass index [BMI] 39.0-39.9, adult Hemoglobin A1c Today E66.9 - Obesity, unspecified, Z68.39 - Body mass index [BMI] 39.0-39.9, adult Insulin Today E66.9 - Obesity, unspecified, Z68.39 - Body mass index [BMI] 39.0-39.9, adult Medications: New polyethylene glycol 3350 Mix each measuring cup with 8oz of water, Crystal light, or Gatorade zero, or Propel and do 7 measuring cups on 02/01/25 and another 7 measuring cups on 02/02/25 17 grams PO DAILY 238 grams 0RF Z01.818 - Encounter for other preprocedural examination pantoprazole 40 mg PO DAILY 90 tabs 0RF K21.9 - Gastro-esophageal reflux disease without esophagitis sucralfate 10 mL PO BID 600 mL 2RF K21.9 - Gastro-esophageal reflux disease without esophagitis ondansetron Only take one every 12 hours as needed if you have nausea 4 mg PO Q12H 20 tabs 0RF nausea and vomiting R11.0 - Nausea
== END 2025-01-21 11:55 | disposition home or self-care (01) ==
LOC: HO.HBS 08:31
PROVIDERS: PCP Internal Medicine; Visit Provider Surgery
DX: E66.812 Obesity, class 2 (principal); E66.09 Other obesity due to excess calories; Z68.39 Body mass index [BMI] 39.0-39.9, adult
CPT/HCPCS: 99214

== ENCOUNTER → 2025-01-21 08:31 | Outpatient (BNVA) | payer OTHER, SELFPAY | PROVIDERS: PCP Internal Medicine; Visit Provider Surgery ==

== ENCOUNTER 2025-02-03 07:55 | Inpatient (IN) | payer OTHER, SELFPAY ==
[2025-01-26 13:55] LABS: MANUAL DIFF FLAG NO
[2025-01-26 15:19] LABS: Basophils Percent Auto 0.6 % (0-2); Eosinophils Absolute Auto 0.1 X10*3/uL (0.0-0.4); Eosinophils Percent Auto 1.2 % (0-4); Hematocrit 39.6 % (37.0-47.0); Hemoglobin 13.7 g/dl (12.0-16.0); Imm Gran Abs Auto 0.02 X10*3/uL (0.00-0.03); Imm Gran Pct Auto 0.3 % (0.0-0.4); Lymphocytes Absolute Auto 2.3 X10*3/uL (1.2-4.9); Lymphocytes Percent Auto 34.3 % (20-40); Mean Corpuscular HGB Conc 34.6 g/dl (31.0-35.0); Mean Corpuscular Volume 83.7 fL (80.0-98.0); Mean Platelet Volume 9.3 fL (9.4-12.3); Monocytes Absolute Auto 0.4 X10*3/uL (0.1-1.2); Monocytes Percent Auto 5.4 % (2-11); Neutrophils Absolute Auto 3.9 x10*3/uL (2.0-8.3); Neutrophils Percent Auto 58.2 % (45-73); Platelet Count 246 X10*3/uL (160-400); Red Blood Count 4.73 X10*6/uL (4.20-5.50); Red Cell Distribution Width 12.7 % (11.0-16.0); White Blood Count 6.7 X10*3/uL (4.8-10.8)
[2025-01-26 15:24] LABS: Estimated Average Glucose 103 mg/dL; Hemoglobin A1c % 5.2 % (<6.0); Total Hemoglobin (HGBA1C) 3663.7064 umol/L
[2025-01-26 15:36] LABS: INTERNATIONAL NORM RATIO 1.1 (0.9-1.1); Prothrombin Time 12.8 SEC (10.9-12.4)
[2025-01-26 15:56] LABS: Anion Gap 13 (12-20)
[2025-01-26 16:00] LABS: Alanine Aminotransferase 43 U/L (0-31); Albumin Level 4.4 g/dL (3.5-5.0); Alkaline Phosphatase 72 U/L (39-117); Aspartate Amino Transferase 27 U/L (5-31); Bilirubin Total 1.4 mg/dL (0.0-1.0); Blood Urea Nitrogen 10 mg/dL (9-16); C Reactive Protein 0.48 mg/dL (< or = 0.50); Calcium 9.6 mg/dL (8.4-10.2); Carbon Dioxide 27 mmol/L (22-29); Chloride 104 mmol/L (96-108); Cholesterol 132 mg/dL (<200); Estimated Glomerular Filt Rate > 60; Glucose Random 83 mg/dL (60-115); HDL Cholesterol 40 mg/dL (>40); LDL Cholesterol Calculated 74 mg/dL (<100); Potassium 3.8 mmol/L (3.3-5.1); Sodium 140 mmol/L (135-145); Total Protein 7.5 g/dL (6.5-8.0); Triglycerides 90 mg/dL (<150)
[2025-01-26 16:16] LABS: Thyroid Stimulating Hormone 0.96 uIU/mL (0.32-4.0)
[2025-01-26 16:48] LABS: Insulin 8 uU/mL (2-29)
[2025-01-27 08:25] VITALS: BMI 38.7
--- NOTE | 2025-02-01 13:49 | HO.ANESPROP2 ---
Documented by User: Aby Jones NP 02/01/25 13:50 HPI - Anesthesia Eval Consult details Narrative: 29yo F for Gastrectomy Sleeve,EGD,possible Diaphragmatic Hernia,possible Ventral Hernia,possible Open PMFSH Active Problems Active Problems: All Active Problems Vitamin B12 deficiency (Acute) Vitamin D deficiency (Acute) Obesity (Acute) Anxiety (Acute) Chronic headaches (Acute) Morbid obesity (Acute) Past Medical History Medical History Back pain Obesity Anxiety Chronic headaches Morbid obesity Family History Family History Paternal Grandmother Breast cancer Maternal Aunt Breast cancer Surgical History Surgical History History of esophagogastroduodenoscopy (EGD) Hx of cholecystectomy History of Problems with Anesthesia: No Social History Social History Are you a primary critical care nurse practitioner to a significant other at home: No Do you presently have visiting nurse or other home services: No Alcohol intake: never Patient Tobacco Use Status: Never used Tobacco Use of substances other than those prescribed or required for medical reasons: No Have you been hit, kicked, punched, or otherwise hurt by someone within the past year? If so, by whom?: No Are you DNR?: No Advance Directives: No Advance Directives Information Provided: No Advance Directives on File: No Patient : No : No Poor oral hygiene: No Meds Allergies Allergy/AdvReac Type Severity Reaction Status Date / Time No Known Allergies Allergy Verified 02/03/25 07:57 Exam Height,Weight and Vital Signs: Height 5 ft 1 in Weight 92.986 kg Pertinent Lab Results Pertinent Lab Results: Laboratory Tests 01/26/25 01/26/25 13:40 13:54 WBC 6.7 RBC 4.73 Hgb 13.7 Hct 39.6 MCV 83.7 MCH 29.0 MCHC 34.6 RDW 12.7 Plt Count 246 MPV 9.3 L Immature Gran % (Auto) 0.3 Neut % (Auto) 58.2 Lymph % (Auto) 34.3 Lynn % (Auto) 5.4 Eos % (Auto) 1.2 Baso % (Auto) 0.6 Lymph # (Auto) 2.3 Lynn # (Auto) 0.4 Eos # (Auto) 0.1 Baso # (Auto) 0.0 Abs Immat Gran (auto) 0.02 Absolute Neuts (auto) 3.9 Absolute Nucleated RBC 0.000 Nucleated RBC % (auto) 0.0 PT 12.8 H INR 1.1 Sodium 140 Potassium 3.8 Chloride 104 Carbon Dioxide 27 Anion Gap 13 BUN 10 Creatinine 0.61 Estim Creat Clear Calc TNP Estimated GFR > 60 Random Glucose 83 Estimat Average Glucose 103 Hemoglobin A1c % 5.2 Insulin Level 8 Calcium 9.6 Total Bilirubin 1.4 H AST 27 ALT 43 H Alkaline Phosphatase 72 C-Reactive Protein 0.48 Total Protein 7.5 Albumin 4.4 Triglycerides 90 Cholesterol 132 LDL Cholesterol, Calc 74 HDL Cholesterol 40 L TSH 0.96 Blood Type A Positive Antibody Screen NEGATIVE Narrative Narrative: EKG 06/2024 Vent. Rate : 078 BPM Atrial Rate : 078 BPM P-R Int : 130 ms QRS Dur : 074 ms QT Int : 368 ms P-R-T Axes : 030 011 023 degrees QTc Int : 419 ms Normal sinus rhythm Normal ECG No previous ECGs available Assessment and Plan Assessment Anesthesia Assessment: Chart Reviewed Final Anesthetic Review History of Problems with Anesthesia: No Documented by User: Malathi Underwood MD 02/03/25 09:32 [facility] Past Medical History Medical History Back pain Obesity Anxiety Chronic headaches Morbid obesity Family History Family History Paternal Grandmother Breast cancer Maternal Aunt Breast cancer Surgical History Surgical History History of esophagogastroduodenoscopy (EGD) Hx of cholecystectomy Social History Social History Are you a primary critical care nurse practitioner to a significant other at home: No Do you presently have visiting nurse or other home services: No Alcohol intake: never Patient Tobacco Use Status: Never used Tobacco Use of substances other than those prescribed or required for medical reasons: No Have you been hit, kicked, punched, or otherwise hurt by someone within the past year? If so, by whom?: No Are you DNR?: No Advance Directives: No Advance Directives Information Provided: No Advance Directives on File: No Patient : No : No Poor oral hygiene: No Meds Allergies Allergy/AdvReac Type Severity Reaction Status Date / Time No Known Allergies Allergy Verified 02/03/25 07:57 Exam Airway Mallampati Class: II TM Dist: >3cm Neck ROM: Full Loose/Missing/Broken Teeth: No Heart: RRR Lungs: CTA Assessment and Plan Assessment Anesthesia Assessment: Anesthesia Plan Discussed Final Anesthetic Review NPO: Yes ASA Class: II Final Preanesthetic Review: Meds/Allgs Chart Reviewed, Consent Obtained/Reviewed and Anes Risks/Benef Reviewed Patient Risk: Low Procedure Risk: Intermediate Anesthetic Plan Anesthetic Plan: GA Disposition: Standard PACU
[2025-02-03] VITALS (16 sets, daily range): BP systolic 104–136; BP diastolic 55–77; PULSE 62–91; RESP 12–22; TEMP 36.1–36.8; O2SAT 94–100
--- OUTSIDE RECORDS SUMMARY | 2025-02-03 08:06 | XMS_ITS | Clinical Summary ---
Author Organization [address] [place] [address] Address [address] [place] [address] Phone Care Team Providers Care Drapery Counselor Name Role Phone Joey Angelo MD Primary Care Provider [phone] Allergies No known active allergies Medications ergocalciferol (VITAMIN D-2) 1,250 mcg (50,000 unit) capsule Take 1 capsule (50,000 Units total) by mouth 1 (one) time per week. 08/20/2023 Active Active Problems Problem Noted Date Diagnosed Date Morbid obesity with BMI of 4 0.0-44.9, adult (CMS/[facility] V24, [facility] V28) 08/11/2024 Vitamin D deficiency 08/20/2023 Encounters Date Type Department Care Team Description 11/05/2024 9:00 AM EST Office Visit Internal Medicine - [place] 175 [facility] [address] [place] [address] Yamileth Hewitt PA Urinary tract infection with hematuria, site unspecified (Primary Dx) from Last 3 Months Surgical History Surgery Date Site/Laterality Comments CHOLECYSTECTOMY PROCEDURE: LAPAROSCOPY, CHOLECYSTECTOMY; COMMENT: due to cholelithiasis -2018 Medical History Medical History Date Comments Morbid obesity with BMI of 4 0.0-44.9, adult (CMS/HCC V24, CMS/[facility] V28) DX:Morbid obesity wit h BMI of 40.0-44.9, adult ([facility]) Vitamin D deficiency DX:Vitamin D deficiency [...] care for your loved ones. For example, director of early childhood education or elderly care for an older adult? [...] Most Recently Relevant to Health Maintenance Insurance [facility] [employer] Care Teams Drapery Counselor Relationship Specialty Start Date End Date Joey Angelo MD 175 [facility] [address] [place] [address] PCP - General 07/14/23
[2025-02-03 08:09] LABS: UPreg QC Valid YES; Urine Pregnancy NEGATIVE (NEGATIVE)
[2025-02-03] MEDS: Aprepitant 32 MG/4.4 ML VIAL IVPUSH (09:10)
[2025-02-03] MEDS: Lactated Ringers 1,000 ML 999 ML IV (09:10)
--- NOTE | 2025-02-03 09:58 | MHC.SHP ---
Pre-Procedural Eval Section A - 24 Hr Update-Section A only Date of Service: 02/03/25 The patient is an INPATIENT: Yes The patient has been examined within 24 hours of the surgical procedure. The History & Physical has been completed within 30 days and I have reviewed it.: Yes Section B - Complete if H&P > 30 days Chief Complaint: Obesity Relevant Family History (Specify if Yes): No Relevant Social History: None Present Medications: None Medical History: No relevant PMH History of Previous Operations: No relevant previous surgery Allergies: Allergies Allergy/AdvReac Type Severity Reaction Status Date / Time No Known Allergies Allergy Verified 02/03/25 07:57 Review of Systems Sugical H&P ROS: Negative: Constitution, Cardiovascular, Respiratory, Neurological, Psychiatric, Hem-Onc, Allergic/Immunologic, Gastrointestinal, Genitourinary, Musculoskeletal, Integumentary, Endocrine and Eyes/Ears/Nose/Throat Exam Surgical H&P Exam: Normal: HEENT, Normal: Heart, Normal: Lungs, Normal: Extremities, Normal: Abdomen, Normal: Skin and Normal: Neurological Plan Diagnosis/Plan: Unchanged I have reviewed the history and physical and performed a pertinent physical examination on my patient. No changes have occurred unless specified. Time Spent With Patient Time: Total time managing care of this patient today ____ minutes.
--- NOTE | 2025-02-03 10:01 | PM.OP ---
Brief Operative Note Date of Service: 02/03/25 Pre-op diagnosis: Severe obesity with comorbidities (see below) Post-op diagnosis: same Procedure: INITIAL PATIENT BMI ON PRESENTATION AT OUR OFFICE: 44.7 kg/m2 LAST BMI BEFORE SURGERY: 38.8 kg/m2 COMORBIDITIES: GERD, headaches, anxiety, liver fibrosis ?The patient presented to the Weight Management Program with significant obesity that was negatively impacting the patient's comorbidities as listed above.? The program is a phased program with a special focus on preoperative medical weight management to promote substantial weight loss and prepare the patients for the second phase of the program: bariatric surgery. The patient participated in an intensive weekly lifestyle ?intervention and exercise program during which the patient ?has lost between the initial office visit and the last preoperative visit 32.6lbs, or 13.7% of initial actual body weight. It was deemed appropriate for the patient to now have bariatric surgery. In light of the current Covid-19 pandemic and the well documented strong association of obesity and increased risk of worse outcomes if infected with Covid-19 (REFERENCES:https://pubmed.ncbi.nlm.nih.gov/56549542/,?https://pubmed.ncbi.nlm.nih.gov/13374398/), any delay in undergoing bariatric surgery may lead to the patient's worsening health condition and increased?risk of more severe Covid-19 disease if infected. In addition a recent?study from [facility] published in [place] [facility] on 08/27/2021 ([email or web address]) found that, among patients with obesity, substantial weight loss achieved with surgery was associated with improved outcomes of COVID-19 infection. The findings suggest that obesity can be a modifiable risk factor for the severity of COVID-19 infection. In addition, the patient met the BMI-criteria for bariatric surgery based on the BMI on initial presentation. The patient should not be penalized for achieving such weight loss because ?it is not sustainable long-term without surgical intervention and it was achieved in preparation for bariatric surgery ?under my direction and based on my published research ([email or web address]).pdf and?https://www.soard.org/article/[email or web address](56)37469-X/pdf) ?that a 10% preoperative weight loss improves long-term weight loss after surgery and reduces perioperative complications.? Insurance carriers such as [facility] have endorsed my recommendations ?and have included in their policies criteria to include a 10% preoperative weight loss requirement. PROCEDURE: Esophago-gastroscopy, laparoscopic sleeve gastrectomy and laparoscopic gastropexy INDICATIONS: This is a 29 year-old female who was electively scheduled for laparoscopic, possibly open sleeve gastrectomy. The risks and complications of the procedure were discussed with the patient in advance, particularly the possibility of ; pulmonary embolism; staple line leak; bleeding; GERD; cardiac, pulmonary, or renal complications; as well as long-term problems such as insufficient weight loss, vitamin deficiency, strictures, or ulcers. The patient understood all the risks, and was in agreement to proceed with surgery. DESCRIPTION OF PROCEDURE: After informed consent was obtained from the patient, the patient was given preoperative antibiotics, and was transferred to the operating room. After successful induction of general anesthesia, pneumatic compression devices were placed on both lower extremities. An upper endoscopy was performed next. The oropharynx and esophagus appeared to be within normal limits. There was no diaphragmatic hernia present. The stomach was entered. Then after all fluid and air were suctioned and the stomach was fully decompressed, the scope was withdrawn and secured in the mid esophagus. The patient was then prepped and draped in the usual sterile manner, and abdominal access was established at the right upper quadrant with the Zachery technique. A 12 mm blunt port was inserted, and the abdomen was insufflated with CO2 to a pressure of 15 mmHg. Under direct visualization, additional ports were placed, specifically two 5 mm Versi-step ports to the left upper quadrant, and a 5 mm Versi-Step port to the right upper quadrant. 1% lidocaine plain was used to infiltrate all port sites as well as all fascia defects. Following that, the patient was placed in a steep reverse Trendelenburg position. An additional 5 mm port was placed to the right flank for the Mediflex retractor that was used to retract the left lobe of the liver. The gastro-esophageal fat pad was opened with the ultrasonic device (Thjodyerbeat, Olympus) and the anterior esophagus and hiatus were exposed. The angle of His was opened with the ultrasonic device the fundus of the stomach from any diaphragmatic and splenic attachments. I then opened the gastrocolic ligament between the transverse colon and the greater curvature of the stomach with the ultrasonic device to enter the lesser sac and facilitate the ligation of the short gastric vessels. I started at a mid-point along the greater curvature and using the Thunderbeat, all short gastric vessels were divided all the way to the angle of His until the left ct was completely dissected at its entirety. I then divided the gastro-colic ligament distally to a distance of about 3-4 cm proximal to the pylorus. The stomach was then divided transversely with one Endo KELLIE-45 purple and three KELLIE-60 articulating orange loads using the [employer] stapler and loads. Every effort was made that the gastric sleeve had a tubular shape and an even caliber throughout. Once the sleeve resection was completed, the staple line of the gastric sleeve was reinforced with Hemoclips. The resected stomach was retrieved without difficulty from the Zachery port. A gastropexy was then performed in order to prevent postoperative GERD and partial gastric volvulus. Several interrupted 2.0 Surgidac sutures were placed between the sleeve's staple line and the previously divided greater omentum and gastro-colic ligament using the Endo-Stitch device. ?An upper endoscopy was performed. There was no narrowing at the GE junction. The scope was easily advanced all the way to the pylorus which was clearly visualized. There was no narrowing anywhere and the sleeve's caliber was even throughout. The sleeve's staple line was inspected and there was no evidence of ischemia, bleeding or dehiscence. At that point the gastroscope was withdrawn from the patient?s mouth while we were decompressing the bowel and the stomach from any remaining air. I looked into the lesser sac to see how the sleeve was situating and it was situating well. There was no bleeding from the staple line, spleen, or short gastric vessels. The Mediflex retractor was removed, and the undersurface of the liver was inspected and there was no bleeding. The patient was placed in supine position. I closed the fascial defect of the 12 mm port site with a figure of eight #1 Polysorb suture. Then 30cc Ropivacaine plain with 10 mg of Dexamethasone were used to infiltrate the fascial closure as well as all skin incisions. At this point, the abdomen was deflated, all ports were removed under direct vision, and no bleeding was noted from any of the port sites. The skin incisions were irrigated with saline and were closed with 4-0 absorbable monofilament sutures. Steri-Strips and OpSites were used to cover all incisions. The patient was extubated and was transferred in stable condition to the recovery room for further care. I was present and performed all carranza parts of the procedure. 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 There were no residents to assist with this case. Slade Laurent MD, PhD, FACS Surgeon: Andrea Laurent MD Anesthesia: GETA, local and other (TAP block) Was an Retail Attendant used for this Procedure?: No Retail Attendant: Kiara Mcnamara Estimated blood loss (mL): 10 IV fluids (mL): 2,500 Urine output (mL): 0 (No Roman to record output) Pathology: other (1) Stomach, 2) gastro-esophageal fat pad ) Condition: stable Disposition: PACU
--- NOTE | 2025-02-03 10:03 | P.PNGS_ITS ---
Subjective Subjective Date of Service: 02/04/25 Interval history: Feels well. Mild incisional pain. She is tolerating phase 1 bariatric diet Physical Exam 2 Vital Signs: Vital Signs: Last Vital Signs Temp 97.5 F 02/03/25 08:43 Pulse 77 02/03/25 08:43 Resp 16 02/03/25 08:43 BP 104/55 L 02/03/25 08:43 Pulse Ox 98 02/03/25 08:43 O2 Del Method Room Air 02/03/25 08:43 BMI result Body Mass Index 38.7 GI: Inspection: Yes normal to inspection, Yes incision (clean, dry and intact) and Yes obesity Palpation (GI): Soft to palpation Extrem: Right lower extremity: normal to inspection (no calf tenderness) L eft lower extremity: normal to inspection (no calf tenderness) Objective Data Active Medications Albuterol/Ipratropium (Albuterol/Iprat 2.5/0.5mg 3 Ml Ampul.Neb) 3 ml INHALE ONCE PRN PRN Reason: Bronchospasm/wheezing Stop: 02/03/25 15:32 Fentanyl (Fentanyl Citrate/Pf 100 Mcg/2 Ml Vial) 25 mcg IVPUSH Q5M PRN PRN Reason: Pain, Moderate to Severe (Pain Scale 4-10) Stop: 02/03/25 15:32 Haloperidol Lactate (Haloperidol Lactate 5 Mg/Ml Vial) 1 mg IVPUSH ONCE PRN PRN Reason: intractable nausea Stop: 02/03/25 15:32 Hydromorphone HCl (Hydromorphone Hcl 0.5 Mg/0.5 Ml Syringe) 0.25 mg IVPUSH Q5M PRN PRN Reason: Pain, Moderate to Severe (Pain Scale 4-10) Stop: 02/03/25 15:32 Lactated Ringer's (Lr) 1,000 mls @ 100 mls/hr IVCONT .Q10H GERI Stop: 02/03/25 10:59 Naloxone HCl (Naloxone Hcl 0.4 Mg/Ml Vial) 0.04 mg IVPUSH Q5M PRN PRN Reason: Excessive sedation or RR < 8 Ondansetron HCl (Ondansetron Hcl 4 Mg/2 Ml Vial) 4 mg IVPUSH ONCE PRN PRN Reason: Nausea and Vomiting Stop: 02/03/25 15:32 Oxycodone HCl (Oxycodone Hcl Immed Release 5 Mg Tablet) 5 mg PO ONCE PRN PRN Reason: Pain, Moderate(Pain Scale 4-6) if no IV Access Stop: 02/03/25 15:32 Labs 02/04/25 06:00 02/04/25 06:00 Labs: Laboratory Results - last 24 hr 02/03/25 07:55 Urine Test NEGATIVE Procedures Date of Service Date of Service: 02/04/25 Progress Note: A&P Assessment and plan (1) Obesity: Status: Acute Assessment and Plan: s/p laparoscopic sleeve gastrectomy and gastropexy Doing well Will check am labs and if OK the patient will be discharged home (2) BMI 38.0-38.9,adult: Status: Acute (3) Anxiety: Status: Acute (4) Chronic headaches: Status: Acute (5) GERD (gastroesophageal reflux disease): Status: Acute (6) Liver fibrosis: Status: Acute (7) S/P laparoscopic sleeve gastrectomy: Status: Acute Time Spent With Patient Time: Total time managing care of this patient today ____ minutes. Quality Stroke Does the patient have a stroke diagnosis?: No VTE Prior VTE?: No VTE Risk Level:: Surgical - moderate VTE Device Contraindication: N/A - Device Ordered VTE Drug Contraindication: Treatment Not Indicated
[2025-02-03] MEDS: ceFAZolin Sodium/Dextrose,Iso 2 GM/50 ML PIGGYBACK IV ×2 (10:45→16:30)
--- NOTE | 2025-02-03 11:00 | PHA.MEDREC ---
Addendum entered by Bg Wilkes RPh 02/03/25 11:08: Med rec was reviewed by [facility]. Original Note: Pharmacy Consult ? Medication Reconciliation Pharmacy has reviewed the medication reconciliation done by nurse Rita Tilley. claims match med list.
--- NOTE | 2025-02-03 12:37 | P.DS_ITS ---
DS: Providers Provider Date of Service: 02/04/25 Date of admission: 02/03/25 07:55 Date of discharge: 02/04/25 Primary care physician: Joey Angelo MD DS: Diagnosis Discharge Diagnosis (1) Obesity: Status: Acute (2) BMI 38.0-38.9,adult: Status: Acute (3) Anxiety: Status: Acute (4) Chronic headaches: Status: Acute (5) GERD (gastroesophageal reflux disease): Status: Acute (6) Liver fibrosis: Status: Acute (7) S/P laparoscopic sleeve gastrectomy: Status: Acute DS: Summary Hospital Course Hospital Course: ADMITTING DIAGNOSIS: morbid obesity, GERD, liver fibrosis, anxiety, headaches DISCHARGE DIAGNOSIS: same, s/p laparoscopic sleeve gastrectomy and gastropexy PAST SURGICAL HISTORY:? cholecystectomy PROCEDURE: upper endoscopy, laparoscopic sleeve gastrectomy and gastropexy DISCHARGE SUMMARY: History of Present Illness: The patient is a?29 year-old woman with a BMI of?38.7 kg/m2 and associated co- morbidities as described above. The patient had extensive work-up, lost?33 lbs preoperatively and was electively scheduled for laparoscopic, possible open sleeve gastrectomy and gastropexy. Risks and complications of the surgery were discussed with the patient in advance, particularly the possibility of , pulmonary embolism, anastomotic leak, bleeding, bowel injury, GERD, cardiac, renal or pulmonary complications. The patient understood all the risks and was in agreement with the surgical plan. Hospital Course: The patient underwent an uneventful laparoscopic sleeve gastrectomy with gastropexy on the day of admission. Postoperatively, the patient was transferred to the surgical floor. The patient received IV acetaminophen and IV Dilaudid for pain control. Patient was started on bariatric phase 1 diet POD #0. On postoperative day one, the patient was feeling well without nausea, vomiting, fevers, or tachycardia. The patient had some mild incisional pain and the abdomen was soft.? ? On the morning of postoperative day one, the patient was continued on 1 ounce of water or ice every half hour. During the day, the patient did fairly well, having some incisional pain, but able to ambulate adequately and to tolerate liquids well. Since the patient is doing well, we decided that the patient was ready to be discharged. The patient was given instructions to follow-up in office next week and to call the office for any fever over 101, persistent abdominal pain, nausea, vomiting, GERD, symptoms of DVT such as calf tenderness, or leg swelling, or pulmonary embolism such as chest pain or shortness of breath.? The patient was also instructed to drink 40-60 ounces of liquids per day using the 1-ounce cups. The patient had been given prescriptions for Tylenol for pain, Zofran prn for nausea, and pantoprazole and carafate previously. The patient was encouraged to ambulate and use the incentive spirometer. The patient was allowed to shower, but no baths, and encouraged to stay active at home. All of these instructions were given to the patient personally. All questions were answered and the patient understood all instructions, the instructions were also given to the patient in print. Time Attestation Discharge Coordination Time (in mins): 30 Quality: Safe Use of Opioids Does Pt have an Active Cancer Diagnosis on the Problem List?: No Quality: Stroke Does the patient have a stroke diagnosis?: No Physical Exam Vital Signs: Vital Signs: Last Vital Signs Temp 97.5 F 02/03/25 08:43 Pulse 77 02/03/25 08:43 Resp 16 02/03/25 08:43 BP 104/55 L 02/03/25 08:43 Pulse Ox 98 02/03/25 08:43 O2 Del Method Room Air 02/03/25 08:43 BMI result Body Mass Index 38.7 DS: Data Data Completed and Pending Pending studies at discharge: Pending at discharge 02/03/25 11:56 Surgical [PTH] Routine Labs on day of discharge: Laboratory Results - last 24 hr 02/03/25 07:55 Urine Test NEGATIVE Discharge Plan Discharge Anticipated Discharge Date/Time: 02/03/25 10:00 Patient Disposition: Home, Self-Care Discharge Diagnosis: s/p laparoscopic sleeve gastrectomy with gastropexy Referrals: Joey Angelo MD [Primary Care Provider] - 1 Week Discharge Medications: Continued pantoprazole 40 mg tablet,delayed release (DR/EC) 40 mg PO DAILY Qty: 90 0RF sucralfate 100 mg/mL suspension 10 ml PO BID Qty: 600 2RF ondansetron 4 mg tablet,disintegrating 4 mg PO Q12H Qty: 20 0RF Rx Instructions: Only take one every 12 hours as needed if you have nausea Discharge Orders: Discharge Order (Routine); Ordered 02/04/25 Ordered By: Andrea Laurent Activity on Discharge: No heavy lifting Stand Alone Forms: Patient Portal Discharge page Print Language: Mozambican Care Plan Goals: weight loss Health Concerns: obesity Plan of Treatment: No tub baths, sex or returning to work until discussed at first post op appointment. No alcohol, tobacco or illegal drug use. Continue to use incentive spirometer hourly while awake. Walk in home for 5- 10 minutes every 2 hours during the first week. Wear abdominal binder with activity. Follow all meal plan instructions from your bariatric surgeon. Review bariatric handbook and call with any questions. Discharge Instructions 1. Please call your doctor or come back to the emergency room should any new symptoms arise. 2. Activity: abstain from alcohol,? limited stair climbing, no bending, no driving, no exercise, no illicit substances, no lifting, no sex, no tub bath, no work. 4. Diet: follow your bariatric surgeon's recommendations for advancing diet. 5. Dressing Change/Wound Care: Your incisions are covered with waterproof dressings. You can shower with these and pat dry. Do not rub over dressings or incisions. If the area is tender, you may apply an ice pack for short intervals (no more than 20 minutes on, followed by at least 20 minutes off). Do not apply heat. Do not use creams, lotions, or topical antibiotics unless instructed to do so by your surgeon. 6. Call your doctor if: - Your temperature exceeds 101.5 F - You experience excessive pain or swelling - You have an unexpected reaction to medication - You have excessive bleeding - You experience continued vomiting/nausea - Your incision begins to separate - Your incision shows signs of infection such as increased redness, swelling, excessive pain, heat, or drainage (light blood or clear fluid is normal) General instructions: No lifting greater than 10 lbs for the next 6 weeks. No driving within 24 hours of taking narcotic pain medications. If you do not move your bowels in the next 2 days, please take milk of magnesia over the counter. Please follow the post op diet and do not advance your diet until instructed by your surgeon or until you are seen in the office in about 1 week. Please walk around your home every hour or two to prevent blood clots from forming in your legs. You do not need to wake from sleeping to walk. Please sleep in a bed or couch to prevent kinking at the hips and knees. Please take your incentive spirometer (your lung major gifts director) home with you and use it for the next few days to prevent pneumonias. You may shower; no hot tubs, baths or swimming pools. Please make sure you are consuming 40-60 ounces of total fluids per day. Avoid all carbonation. Please call the office with any questions or concerns such as increasing abdominal pain, fever, chills, shortness of breath, chest pain, leg pain or swelling, or redness or drainage from your incisions. Do not hesitate to contact the office with any questions at . The patient's medical history has been reviewed and they are considered low risk for post op DVT and therefore DVT prophylaxis is not considered necessary. Travel after surgery was reviewed. The patient has not disclosed any travel plans during the first 30 days after surgery and they have been advised that within the first 30 days after surgery any bus, plane, train or car travel over 2 hours in duration is contraindicated due to the possibility of developing blood clots from immobility. Any travel, needs to include periods of ambulation of 10 minutes in duration every 2 hours.? The patient was instructed to discuss any plans for travel during this period with their bariatric surgeon. Assessment: s/p laparoscopic sleeve gastrectomy with gastropexy Discharge Date/Time: 02/04/25 10:15
[2025-02-03] MEDS: fentaNYL citrate/PF 100 MCG/2 ML VIAL 25 MCG IVPUSH ×2 (12:51→12:57)
[2025-02-03 13:05] LABS: Hematocrit 37.3 % (37.0-47.0); Hemoglobin 12.9 g/dl (12.0-16.0)
[2025-02-03 13:17] LABS: Anion Gap 14 (12-20); Blood Urea Nitrogen 9 mg/dL (9-16); Carbon Dioxide 22 mmol/L (22-29); Chloride 105 mmol/L (96-108); Creatinine Clr Calc Pharmacy 140.2; Estimated Glomerular Filt Rate > 60; Glucose Random 102 mg/dL (60-115); Potassium 3.7 mmol/L (3.3-5.1); Sodium 137 mmol/L (135-145)
[2025-02-03] MEDS: Acetaminophen 1,000 MG/100 ML PIGGYBACK 16.7 MG IV ×2 (17:16→23:04)
[2025-02-03] MEDS: Lactated Ringers 1,000 ML 100 ML IVCONT (17:18)
[2025-02-03] MEDS: Famotidine/PF 20 MG/2 ML VIAL IVPUSH (20:10)
[2025-02-03] MEDS: 0.9 % Sodium Chloride Flush 3 ML SYRINGE IVFLUSH (20:10)
[2025-02-04] MEDS: Lactated Ringers 1,000 ML 100 ML IVCONT (03:11)
[2025-02-04 03:38] VITALS: BP 111/58; PULSE 62; RESP 18; TEMP 36.7; O2SAT 97
[2025-02-04] MEDS: Acetaminophen 1,000 MG/100 ML PIGGYBACK 16.7 MG IV (05:03)
[2025-02-04 06:20] LABS: MANUAL DIFF FLAG NO
[2025-02-04 06:36] LABS: Anion Gap 13 (12-20); Basophils Percent Auto 0.2 % (0-2); Blood Urea Nitrogen 6 mg/dL (9-16); Calcium 9.3 mg/dL (8.4-10.2); Carbon Dioxide 23 mmol/L (22-29); Chloride 107 mmol/L (96-108); Creatinine Clr Calc Pharmacy 144.9; Estimated Glomerular Filt Rate > 60; Glucose Random 101 mg/dL (60-115); Hematocrit 36.6 % (37.0-47.0); Hemoglobin 12.6 g/dl (12.0-16.0); Imm Gran Abs Auto 0.05 X10*3/uL (0.00-0.03); Imm Gran Pct Auto 0.5 % (0.0-0.4); Lymphocytes Absolute Auto 1.5 X10*3/uL (1.2-4.9); Lymphocytes Percent Auto 15.9 % (20-40); Mean Corpuscular HGB Conc 34.4 g/dl (31.0-35.0); Mean Corpuscular Hemoglobin 29.2 pg (27.0-33.0); Mean Corpuscular Volume 84.9 fL (80.0-98.0); Mean Platelet Volume 9.5 fL (9.4-12.3); Monocytes Absolute Auto 0.4 X10*3/uL (0.1-1.2); Monocytes Percent Auto 4.3 % (2-11); Neutrophils Absolute Auto 7.3 x10*3/uL (2.0-8.3); Neutrophils Percent Auto 79.1 % (45-73); Platelet Count 236 X10*3/uL (160-400); Potassium 4.4 mmol/L (3.3-5.1); Red Blood Count 4.31 X10*6/uL (4.20-5.50); Red Cell Distribution Width 12.4 % (11.0-16.0); Sodium 139 mmol/L (135-145); White Blood Count 9.3 X10*3/uL (4.8-10.8)
[2025-02-04] MEDS: Famotidine/PF 20 MG/2 ML VIAL IVPUSH (08:08)
[2025-02-04] MEDS: 0.9 % Sodium Chloride Flush 3 ML SYRINGE IVFLUSH (08:08)
--- NOTE | 2025-02-04 08:28 | HO.POSTANES ---
Post Anesthesia Evaluation Post Anesthesia Evaluation Date of Service: 02/04/25 Vital Signs: Vital Signs Temp Pulse Resp BP Pulse Ox O2 Del Method 02/04/25 03:38 98.0 F 62 18 111/58 L 97 Room Air 02/03/25 23:18 97.9 F 62 18 126/62 98 Room Air Anesthesia: General Endotracheal-GETA Mental Status: Awake Pain Control: Satisfactory Nausea/Vomiting: None Hydration: Adequate Anesthesia-Related Issues: No Anes. Related Issues
[2025-02-04 09:05] VITALS: BP 106/59; PULSE 67; RESP 12; TEMP 36.4; O2SAT 99
--- NOTE | 2025-02-04 10:42 | MHC.CM.PN ---
Patient dc'd home self care via private transport prior to CM assessment
== END 2025-02-04 10:15 | disposition home or self-care (01) | DRG 403 ==
LOC: HO.SSSA 12:36 → HO.S3 14:28
PROVIDERS: Nurse Practitioner; Physician Assistant Surgical; Admitting Provider Surgery; PCP Internal Medicine; Visit Provider Surgery
PROC: 0DB64Z3 Excision of Stomach, Percutaneous Endoscopic Approach, Vertical (ICD-10-PCS; CPT 43845; principal; 2025-02-03 10:20)
DX: E66.01 Morbid (severe) obesity due to excess calories (principal); K74.00 Hepatic fibrosis, unspecified; F41.9 Anxiety disorder, unspecified; K21.9 Gastro-esophageal reflux disease without esophagitis; R51.9 Headache, unspecified; Z68.38 Body mass index [BMI] 38.0-38.9, adult; Z79.899 Other long term (current) drug therapy
CPT/HCPCS: 36415; 80048; 80053; 80061; 81025; 83036; 83525; 84443; 85014; 85018; 85025; 85610; 86140; 86850; 86900; 86901; 88304; 88305; 88307; 88342; A4649; C9145; J0131; J0690; J1100; J1308; J2003; J2250; J2405; J2704; J2795; J3010; J7120

== ENCOUNTER → 2025-02-03 07:55 | Outpatient (BNV) | payer OTHER, SELFPAY | PROVIDERS: Admitting Provider Surgery; PCP Internal Medicine; Visit Provider Surgery | DX: E66.812 Obesity, class 2 (principal); E66.09 Other obesity due to excess calories; Z68.39 Body mass index [BMI] 39.0-39.9, adult; Z68.38 Body mass index [BMI] 38.0-38.9, adult; F41.9 Anxiety disorder, unspecified; R51.9 Headache, unspecified; G89.29 Other chronic pain; K21.9 Gastro-esophageal reflux disease without esophagitis; K74.00 Hepatic fibrosis, unspecified; Z98.84 Bariatric surgery status | CPT/HCPCS: 43659; 43775; 99024 ==

== ENCOUNTER 2025-02-09 07:50 | Outpatient (AMB) | payer OTHER, SELFPAY ==
--- OUTSIDE RECORDS SUMMARY | 2025-02-09 07:53 | XMS_ITS | Clinical Summary ---
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 08/20/2023 Active Active Problems Problem Noted Date Diagnosed Date Morbid obesity with BMI of 4 0.0-44.9, adult ([facility] V24, [facility] V28) 08/11/2024 Vitamin D deficiency 08/20/2023 Surgical History Surgery Date Site/Laterality Comments CHOLECYSTECTOMY PROCEDURE: LAPAROSCOPY, CHOLECYSTECTOMY; COMMENT: due to cholelithiasis -2018 Medical History Medical History Date Comments Morbid obesity with BMI of 4 0.0-44.9, adult ([facility] V24, [facility] V28) DX:Morbid obesity wit h BMI of 40.0-44.9, adult ([facility]) Vitamin D deficiency DX:Vitamin D deficiency [...] Record ed Within the last 3 months, fran rags[place] many times did you visit the emergency [...] for your loved ones. For example, child adolescent care or elderly care for an older adult? 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
--- NOTE | 2025-02-09 07:55 | MHC.OFFVISWM ---
VS Expanded 02/09/25 08:17 BP 127/61 Blood Pressure Location Rt brachial Blood Pressure Position Sitting Pulse 79 Pulse Source Pulse Oximeter Temp 95.9 F L Temperature Source Temporal Artery Scan Pulse Oximetry 98 Oxygen Delivery Method Room Air Height 5 ft 0.5 in Weight 193 lb 3.2 oz BMI 37.1 Body Fat % 45.0 Body Fat Mass 86.8 Fat Free Mass 106.2 Visceral Fat Rating 10.0 Body Water % 39.6 Body Water Mass 76.6 Muscle Mass/Score 101.0 Basal Metabolic Rate/Score 1,530 Intake Visit Reasons: (OV) PO LSG 02/03/25 Allergies No Known Allergies Allergy (Verified 02/09/25 08:03) HPI Comments Details: Pleasant 29-year-old female who returns to the office today in follow-up. She is 6 days post sleeve gastrectomy performed on 02/03/2025. She is tolerating 3 garden of life shakes with half scoop each. She has moved her bowels. Tolerating a proximally 50 oz of fluid per day. Offers no complaints. [facility] Medical History (Updated 02/03/25 @ 10:05 by Andrea Laurent MD) Back pain Obesity Anxiety Chronic headaches Morbid obesity Surgical History (Updated 02/09/25 @ 08:03 by Aracelis Restrepo CMA) S/P laparoscopic sleeve gastrectomy History of esophagogastroduodenoscopy (EGD) Hx of cholecystectomy Family History Paternal Grandmother Breast cancer Maternal Aunt Breast cancer Social History Household Members: Family Housing: Apartment Are you a primary complex care nurse practitioner to a significant other at home: No Do you presently have visiting nurse or other home services: No Alcohol intake: never Patient Tobacco Use Status: Never used Tobacco Physical Exam GI Inspection: Yes incision (Clean, dry, intact.) Assessment & Plan Assessment & Plan (1) S/P laparoscopic sleeve gastrectomy: Code(s): Z98.84 - Bariatric surgery status Category: Surgical Plan: POD 6 s/p LSG on 02/03/[address] Laurent Weight loss prior to surgery was 33 pounds or 13.8 % TBWL. Original weight on 06/07/2024 was 238 pounds and op weight was 205 pounds. Be sure to text Dr Laurent exactly 1 week after surgery your weight from your home scale so he can adjust your meal plan. Continue meal plan until f/u jn Toure in 2 weeks May shower, no submersion in bath for another week Continue abdominal binder with activity and exercise for the next 2 weeks. Exercise prior to surgery was walking outside and may resume No abdominal exercises for 6 weeks post operatively Will be emailed link to post op video for review Reminded of the pace of drinking, 2 mL per minute, 1 oz/15 min.
[2025-02-09 08:17] VITALS: BP 127/61; PULSE 79; TEMP 35.5; O2SAT 98; BMI 37.1
== END 2025-02-09 08:38 | disposition home or self-care (01) ==
LOC: HO.HBS 07:51
PROVIDERS: PCP Internal Medicine; Visit Provider Physician Assistant Surgical
DX: Z98.84 Bariatric surgery status (principal)
CPT/HCPCS: 99024

== ENCOUNTER → 2025-02-09 07:50 | Outpatient (BNVA) | payer OTHER, SELFPAY | PROVIDERS: PCP Internal Medicine; Visit Provider Physician Assistant Surgical | DX: Z98.84 Bariatric surgery status (principal) | CPT/HCPCS: 99212 ==

== ENCOUNTER 2025-02-28 13:22 | Outpatient (AMB) | payer OTHER, SELFPAY ==
--- NOTE | 2025-02-28 13:30 | MHC.OFFVISWM ---
VS Expanded 02/28/25 13:43 BP 113/69 Blood Pressure Location Rt brachial Blood Pressure Position Sitting Pulse 58 Pulse Source Pulse Oximeter Temp 96.4 F L Temperature Source Temporal Artery Scan Pulse Oximetry 99 Oxygen Delivery Method Room Air Height 5 ft 0.5 in Weight 182 lb 12.8 oz BMI 35.1 Body Fat % 41.0 Body Fat Mass 75.0 Fat Free Mass 107.8 Visceral Fat Rating 8.0 Body Water % 42.3 Body Water Mass 77.4 Muscle Mass/Score 102.2 Basal Metabolic Rate/Score 1,528 Intake Visit Reasons: (OV) PO LSG 02/03/25 Allergies No Known Allergies Allergy (Verified 02/28/25 13:34) HPI Comments Details: This?a?29?yo female who is s/p LSG without hiatal hernia repair on?02/03/2025. Presents for 3 week post op visit. Weight today is 182.8 pounds, with a BMI of 35.1. There has been a 55.2 pound weight loss,(initial weight 238 pounds) since starting the program on 06/07/2024 reflecting a 23.1% total body weight loss and a weight loss of 22.2 pounds since surgery (operative weight 205 pounds) reflecting a 10.8% TBWL since surgery. No complaints of nausea, emesis, abdominal pain or reflux. Reports infrequent but normal bowel movements every 2 days and uses stool softeners regularly. Patient was doing 2 shakes with 1 scoop each Present meal plan includes: Garden of life protein powder 1/2 scoop at 8-10, 11-1, 2-4 1 scoop at 5-7 ? Exercise routine includes: Walking outside daily She does say that she has a stationary bike at home but has been unable to set it up [facility] Medical History (Updated 02/17/25 @ 21:39 by Andrea Laurent MD) Back pain Obesity Anxiety Chronic headaches Morbid obesity Surgical History S/P laparoscopic sleeve gastrectomy History of esophagogastroduodenoscopy (EGD) Hx of cholecystectomy Family History Paternal Grandmother Breast cancer Maternal Aunt Breast cancer Social History Household Members: Family Housing: Apartment Are you a primary congregational care pastor to a significant other at home: No Do you presently have visiting nurse or other home services: No Alcohol intake: never Patient Tobacco Use Status: Never used Tobacco Physical Exam Const General: healthy appearing and no acute distress Resp Effort & Inspection: normal respiratory effort Auscultation: clear to auscultation bilaterally Cardio Rate: regular rate Rhythm: regular rhythm GI Auscultation: normal bowel sounds Extrem General: Yes normal to inspection Assessment & Plan Assessment & Plan (1) S/P laparoscopic sleeve gastrectomy: Code(s): Z98.84 - Bariatric surgery status Category: Surgical Plan: Patient encouraged to follow the meal plan exactly. Text Dr. Laurent if she is having any problems. She just misunderstood what she was supposed to be doing. Additionally, encouraged to set up her stationary bike. We will have her return to the office in approximately 1 month.
[2025-02-28 13:43] VITALS: BP 113/69; PULSE 58; TEMP 35.8; O2SAT 99; BMI 35.1
--- OUTSIDE RECORDS SUMMARY | 2025-02-28 13:50 | XMS_ITS | Clinical Summary ---
Author Organization [address] [place] [address] Address [address] [place] [address] Phone Care Team Providers Care Candy Packer Name Role Phone Joey Angelo MD Primary Care Provider [phone] Allergies No known active allergies Medications ergocalciferol (VITAMIN D-2) 1,250 mcg (50,000 unit) capsule Take 1 capsule (50,000 Units total) by mouth 1 (one) time per week. 08/20/2023 Active Active Problems Problem Noted Date Diagnosed Date Morbid obesity with BMI of 4 0.0-44.9, adult ([facility] V24, [facility] V28) 08/11/2024 Vitamin D deficiency 08/20/2023 Surgical History Surgery Date Site/Laterality Comments CHOLECYSTECTOMY PROCEDURE: LAPAROSCOPY, CHOLECYSTECTOMY; COMMENT: due to cholelithiasis -2018 Medical History Medical History Date Comments Morbid obesity with BMI of 4 0.0-44.9, adult ([facility] V24, [facility] V28) DX:Morbid obesity wit h BMI of 40.0-44.9, adult ([facility]) Vitamin D deficiency DX:Vitamin D deficiency Family [...] 79 11/05/2024 8:50 AM EST Temperature 36.3 C (97.3 F) 11/05/2024 8:50 AM EST Respiratory Rate - - Oxygen Saturation 99% [...] 09/26/2023 Hepatitis C Screening 09/26/2023 COVID-19 Vaccine ( - 2023-2 5 season) 2024 Influenza Vaccine [...] mg/dL Blood Venous blood specimen / Unknown [facility] Provider LAB BLOOD ORDERABLES Leelee l Result from Last 3 Months or Most Recently Relevant to Health Maintenance Insurance [facility] [employer] Care Teams Candy Packer Relationship Specialty Start Date End Date Joey Angelo MD [address] [place] [address] [address] [place] [address] PCP - General 07/14/23
== END 2025-02-28 14:05 | disposition home or self-care (01) ==
LOC: HO.HBS 13:23
PROVIDERS: PCP Internal Medicine; Visit Provider Physician Assistant Surgical
DX: Z98.84 Bariatric surgery status (principal)
CPT/HCPCS: 99024

== ENCOUNTER → 2025-02-28 13:22 | Outpatient (BNVA) | payer OTHER, SELFPAY | PROVIDERS: PCP Internal Medicine; Visit Provider Physician Assistant Surgical | DX: Z98.84 Bariatric surgery status (principal) | CPT/HCPCS: 99212 ==

== ENCOUNTER 2025-03-02 10:11 | Outpatient (AMB) | payer OTHER, SELFPAY ==
--- NOTE | 2025-03-02 10:00 | MHC.WMTHER ---
Intake Intake Visit Reasons: TV PO LSG 02/03/25 Allergies No Known Allergies Allergy (Verified 02/28/25 13:34) PFSH Medical History (Updated 02/17/25 @ 21:39 by Andrea Laurent MD) Back pain Obesity Anxiety Chronic headaches Morbid obesity Surgical History S/P laparoscopic sleeve gastrectomy History of esophagogastroduodenoscopy (EGD) Hx of cholecystectomy Family History Paternal Grandmother Breast cancer Maternal Aunt Breast cancer Social History Household Members: Family Housing: Apartment Are you a primary daycare teacher to a significant other at home: No Do you presently have visiting nurse or other home services: No Alcohol intake: never Patient Tobacco Use Status: Never used Tobacco Behavioral Health Assessment Weight Management Therapy Therapy Notes Details Subjective: PT had weight loss surgery on 02/03/2025. Weight on day of surgery was 205Lbs and recent as of 02/28 was 182Lbs. Patient reports she has had a good recovery in general. However, she has a hard time with pace of drinking when she's at work due to temperatures. PT reports her mood has been stable, denies feeling down/depressed or anxious. Her family has been very supportive. PT denies any hunger but has had food thoughts/cravings. Objective: The patient presents for a behavioral health post-operative follow-up visit. A guided emotional check-in was conducted to assess her current functioning, recovery, mood, and emotional state. Psychoeducation was provided on the emotional and psychological adjustments commonly experienced after bariatric surgery. We also focused on distinguishing between hunger and cravings or food thoughts, exploring possible reasons for these experiences, and strategies to work on her mindset. Emphasis was placed on becoming mindful of her physical and mental needs during these times while staying on track. The PHQ-9 was administered to screen for symptoms of depression. The importance of adhering to the Weight Management Program (WMP) providers' instructions was emphasized, including the pace of drinking and following the meal and exercise plan. Tips and recommendations for long-term success were also discussed. Program resources were provided, and the patient was invited to join our Facebook group to stay informed about ongoing events and activities. Assessment/Response: Mental status: WNL Risk reported/identified: None Food/Weight/Diet Expectations of change PT started the program on 06/07 at 238 lbs. Initial Goal was to lose 10% of her weight before surgery, which is about 24lbs. Ultimate weight goal: 214 lbs before surgery weight as of 12/24: 219 lbs. Weight on day of [id number]/2025: 205Lbs PO weight 03/01/2025: 182Lbs Pt's target weight: 130-140Lbs. However she's not sure. - PT is implementing the following meal plan: Garden of life protein powder 1/2 scoop at 8-10, 11-1, 2-4 1 scoop at 5-7 -Exercise plan: Outdoor walks, but she got a stationary bike however doesn't have the space. Provider will mail the [facility] letter to get the discount. - Scale: yes -Communication w/ Dr Rodas: on . Questionnaires PHQ-9 Over the last 2 weeks, how often have you been bothered by any of the following problems? 1. Little interest or pleasure in doing things: not at all 2. Feeling down, depressed, or hopeless: not at all 3. Trouble falling or staying asleep, or sleeping too much: not at all 4. Feeling tired or having little energy: not at all 5. Poor appetite or overeating: not at all 6. Feeling bad about yourself - or that you are a failure or have let yourself or your family down: not at all 7. Trouble concentrating on things, such as reading the newspaper or watching television: not at all 8. Moving or speaking so slowly that other people could have noticed. Or the opposite - being so fidgety or restless that you have been moving around a lot more than usual: not at all 9. Thoughts that you would be better off or of hurting yourself in some way: not at all Total score: 0 Depression Screening Interpretation: Negative Depression Screening Done: Yes 03550 - PHQ-9 Billing: Yes Source: Developed by Drs. Bentley Denis, Shannon Muro, Keagan Lamar and colleagues, with an educational suraj from [employer]. Assessment & Plan Assessment & Plan (1) Adjustment disorder, unspecified: Code(s): F43.20 - Adjustment disorder, unspecified Plan -She was sent the link for the [employer] support group for post-op to join and be informed of upcoming events. -Advised to call next week if doesn't receive the [facility] letter in the mail to f/up on this matter. No safety concerns or issues were identified that would necessitate behavioral health monitoring. The patient declined further visits but is aware of the available behavioral health support if needed in the future. Telehealth Telehealth Telehealth Platform: Data [employer] Location of provider rendering services: other (Home office. [place], [place]) Location of patient: address on file Patient Identification confirmed using: Name, : Yes Telehealth method: video Patient verbally consented to treatment: Yes Patient verbally consented to billing insurance company: Yes Patient informed of any privacy concerns related to visit: Yes Minutes spent on Phone/Video with Pt.: 30 Coding Level of Care Code Established Pt Tele Psytx 30 mins (41961) Patient Type Established Diagnoses Adjustment disorder, unspecified F43.20 Additional Codes PHQ-9 - 33912 - PHQ-9 Billing: Yes ([id number]) Time Spent (min) 30
--- OUTSIDE RECORDS SUMMARY | 2025-03-02 10:41 | XMS_ITS | Clinical Summary ---
Author Organization [address] [place] [address] Address [address] [place] [address] Phone Care Team Providers Care Sustainability Director Name Role Phone Joey Angelo MD Primary Care Provider [phone] Allergies No known active allergies Medications ergocalciferol (VITAMIN D-2) 1,250 mcg (50,000 unit) capsule Take 1 capsule (50,000 Units total) by mouth 1 (one) time per week. 08/20/2023 Active Active Problems Problem Noted Date Diagnosed Date Morbid obesity with BMI of 4 0.0-44.9, adult ([facility] V24, [facility] V28) 08/11/2024 Vitamin D deficiency 08/20/2023 Surgical History Surgery Date Site/Laterality Comments CHOLECYSTECTOMY PROCEDURE: LAPAROSCOPY, CHOLECYSTECTOMY; COMMENT: due to cholelithiasis -2017 Medical History Medical History Date Comments Morbid obesity with BMI of 4 0.0-44.9, adult ([facility] V24, [facility] V28) DX:Morbid obesity wit h BMI of 40.0-44.9, adult ([facility]) Vitamin D deficiency DX:Vitamin D deficiency [...] loved ones. For example, early childhood education coordinator or elderly care for an older adult? [...] mg/dL Blood Venous blood specimen / Unknown [facility] Provider LAB BLOOD ORDERABLES Leelee l Result from Last 3 Months or Most Recently Relevant to Health Maintenance Insurance [facility] [employer] Care Teams Sustainability Director Relationship Specialty Start Date End Date Joey Angelo MD [address] [place] [address] [address] [place] [address] PCP - General 07/14/23
== END 2025-03-02 10:40 | disposition home or self-care (01) ==
LOC: HO.HBST 10:11
PROVIDERS: PCP Internal Medicine; Visit Provider Counselor Mental Health
DX: F43.20 Adjustment disorder, unspecified (principal)
CPT/HCPCS: 90832

== ENCOUNTER 2025-08-18 08:42 | Emergency (ER) | payer OTHER, SELFPAY ==
[2025-08-18 08:46] VITALS: BP 166/70; PULSE 78; RESP 16; TEMP 36.2; O2SAT 99; BMI 30.7
--- OUTSIDE RECORDS SUMMARY | 2025-08-18 10:18 | XMS_ITS | Clinical Summary ---
Author Organization [address] [place] [address] Address [address] [place] [address] Phone Care Team Providers Care Superintendent Power Name Role Phone Joey Angelo MD Primary Care Provider [phone] Allergies No known active allergies Medications ergocalciferol (VITAMIN D-2) 1,250 mcg (50,000 unit) capsule Take 1 capsule (50,000 Units total) by mouth 1 (one) time per week. 08/20/2023 Active Active Problems Problem Noted Date Diagnosed Date Morbid obesity with BMI of 40.0-44.9, adult 08/01 Vitamin D deficiency 08/20/2023 Surgical History Surgery Date Site/Laterality Comments CHOLECYSTECTOMY PROCEDURE: LAPAROSCOPY, CHOLECYSTECTOMY; COMMENT: due to cholelithiasis -2017 Medical History Medical History Date Comments Morbid obesity with BMI of 4 0.0-44.9, adult ([facility] V24, [facility] V28) DX:Morbid obesity wit h BMI of 40.0-44.9, adult ([facility]) Vitamin D deficiency DX:Vitamin D deficiency [...] for your loved ones. For example, child custody evaluator or elderly care for an older adult? [...] Date Recorded What is your living situation? Unrecognized valu e 11/04/2024 Comments Unknown Sex and Gender Information Value Date Recorded Sex Assigned at Female 10/13/2024 10:23 AM EST Legal Sex Female 9:08 PM EST Gender Identity Female 10/13/2024 10:23 AM EST Sexual Orientation Lesbian or [place] 10/13/2024 10 :23 AM EST Last Filed Vital Signs Vital Sign Reading [...] Cervical Cancer Screening: P ap Smear 2015 HPV Vaccines (1 - 3-dose SCD M series) 2021 HIV Screening 09/26/2023 Hepatitis C Screening 09/26/2023 COVID-19 Vaccine (1 - 2024-2 6 season) 2025 Influenza Vaccine (#1) 2025 Social Influencers of Health Screening 11/04/2025 11/04/2024 Cholesterol Screening (Lipid Panel) 08/19/2028 08/19/2023 RSV Immunization Adult Patie nts (1 - 1-dose 75+ series) 2069 Depression Screening Completed 11/04/2024 HIB Vaccines Aged Out No longer eligi [...] 5 Years) and At-Risk Patients (6 to 49 Years) Aged Out No longer eligi ble [...] mg/dL Blood Venous blood specimen / Unknown [facility] Provider LAB BLOOD ORDERABLES Leelee l Result from Last 3 Months or Most Recently Relevant to Health Maintenance Insurance [facility] [employer] Care Teams Superintendent Power Relationship Specialty Start Date End Date Joey Angelo MD [address] [facility] [address] [place] [address] PCP - General 07/14/23
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
[2025-08-18 11:09] VITALS: BP 166/70; PULSE 78; RESP 16; TEMP 36.2; O2SAT 99
== END 2025-08-18 11:10 | disposition home or self-care (01) ==
PROVIDERS: Emergency Provider Emergency Medicine Emergency Medical Services
DX: S46.811A Strain of other muscles, fascia and tendons at shoulder and upper arm level, right arm, initial encounter (principal); V43.52XA Car driver injured in collision with other type car in traffic accident, initial encounter; Y93.89 Activity, other specified; Y92.414 Local residential or business street as the place of occurrence of the external cause; Y99.9 Unspecified external cause status
CPT/HCPCS: 99282